=== PATIENT | female | born 1990 | race Caucasian/White ===

== ENCOUNTER 2021-06-03 07:02 | Outpatient (REF) | payer OTHER, SELFPAY ==
[2021-06-03 12:18] LABS: Alanine Aminotransferase 9 U/L (0-31); Albumin Level 4.3 g/dL (3.5-5.0); Alkaline Phosphatase 41 U/L (39-117); Anion Gap 10 (12-20); Aspartate Amino Transferase 12 U/L (5-31); Bilirubin Total 1.6 mg/dL (0.0-1.0); Blood Urea Nitrogen 10 mg/dL (9-16); Calcium 9.2 mg/dL (8.4-10.2); Carbon Dioxide 25 mmol/L (22-29); Chloride 108 mmol/L (96-108); Cholesterol 169 mg/dL; Estimated Glomerular Filt Rate > 60; Glucose Fasting 94 mg/dL (60-99); HDL Cholesterol 54 mg/dL; LDL Cholesterol Calculated 103 mg/dl; Potassium 4.2 mmol/L (3.3-5.1); Sodium 139 mmol/L (135-145); Total Protein 6.9 g/dL (6.5-8.0); Triglycerides 60 mg/dL
[2021-06-03 12:41] LABS: TSH reflex Free T4 1.52 uIU/mL (0.32-4.0)
== END 2021-06-03 07:03 | disposition home or self-care (01) ==
LOC: HO.WFDLDS 07:02
PROVIDERS: Visit Provider Family Medicine
DX: Z00.00 Encounter for general adult medical examination without abnormal findings (principal)
CPT/HCPCS: 36415; 80053; 80061; 84443

== ENCOUNTER 2022-06-05 09:43 | Outpatient (REF) | payer OTHER, SELFPAY ==
[2022-06-05 12:13] LABS: Alanine Aminotransferase 10 U/L (0-31); Albumin Level 4.7 g/dL (3.5-5.0); Alkaline Phosphatase 44 U/L (39-117); Anion Gap 15 (12-20); Aspartate Amino Transferase 16 U/L (5-31); Bilirubin Total 1.2 mg/dL (0.0-1.0); Blood Urea Nitrogen 14 mg/dL (9-16); Calcium 9.4 mg/dL (8.4-10.2); Carbon Dioxide 23 mmol/L (22-29); Chloride 106 mmol/L (96-108); Cholesterol 191 mg/dL; Estimated Glomerular Filt Rate > 60; Glucose Fasting 86 mg/dL (60-99); HDL Cholesterol 69 mg/dL; LDL Cholesterol Calculated 115 mg/dl; Potassium 4.7 mmol/L (3.3-5.1); Sodium 139 mmol/L (135-145); Total Protein 7.4 g/dL (6.5-8.0); Triglycerides 37 mg/dL
[2022-06-05 12:14] LABS: TSH reflex Free T4 0.98 uIU/mL (0.32-4.0)
== END 2022-06-05 09:44 | disposition home or self-care (01) ==
LOC: HO.WFDLDS 09:43
PROVIDERS: Visit Provider Family Medicine
DX: Z00.00 Encounter for general adult medical examination without abnormal findings (principal)
CPT/HCPCS: 36415; 80053; 80061; 84443

== ENCOUNTER 2023-06-24 07:09 | Outpatient (REF) | payer OTHER, SELFPAY ==
[2023-06-24 11:46] LABS: MANUAL DIFF FLAG NO
[2023-06-24 11:49] LABS: Basophils Percent Auto 0.9 % (0-2); Eosinophils Percent Auto 0.6 % (0-4); Hematocrit 41.1 % (37.0-47.0); Hemoglobin 14.3 g/dl (12.0-16.0); Imm Gran Abs Auto 0.01 X10*3/uL (0.00-0.03); Imm Gran Pct Auto 0.2 % (0.0-0.4); Lymphocytes Absolute Auto 1.3 X10*3/uL (1.2-4.9); Lymphocytes Percent Auto 27.9 % (20-40); Mean Corpuscular HGB Conc 34.8 g/dl (31.0-35.0); Mean Corpuscular Hemoglobin 32.1 pg (27.0-33.0); Mean Corpuscular Volume 92.4 fL (80.0-98.0); Mean Platelet Volume 10.5 fL (9.4-12.3); Monocytes Absolute Auto 0.4 X10*3/uL (0.1-1.2); Monocytes Percent Auto 8.9 % (2-11); Neutrophils Absolute Auto 2.9 x10*3/uL (2.0-8.3); Neutrophils Percent Auto 61.5 % (45-73); Platelet Count 267 X10*3/uL (160-400); Red Blood Count 4.45 X10*6/uL (4.20-5.50); Red Cell Distribution Width 11.7 % (11.0-16.0); White Blood Count 4.7 X10*3/uL (4.8-10.8)
[2023-06-24 11:52] LABS: Appearance Urine Cloudy; Color Urine Yellow; Glucose Urine UA Negative (Negative); Leukocyte Esterase Urine Negative (Negative); Nitrite Urine Negative (Negative); Specific Gravity - Urine 1.025 (1.005-1.025); UMIC TRIGGER UA YES; Urine Blood Moderate (2+) (Negative); Urine Ketones 40 mg/dL (Negative); Urine Protein Negative (Neg-Trace)
[2023-06-24 12:06] LABS: Alanine Aminotransferase 10 U/L (0-31); Albumin Level 4.7 g/dL (3.5-5.0); Alkaline Phosphatase 38 U/L (39-117); Anion Gap 15 (12-20); Aspartate Amino Transferase 15 U/L (5-31); Bilirubin Total 2.5 mg/dL (0.0-1.0); Blood Urea Nitrogen 11 mg/dL (9-16); Calcium 9.5 mg/dL (8.4-10.2); Carbon Dioxide 23 mmol/L (22-29); Chloride 105 mmol/L (96-108); Cholesterol 181 mg/dL (<200); Estimated Glomerular Filt Rate > 60; Glucose Fasting 74 mg/dL (60-99); HDL Cholesterol 55 mg/dL (>40); LDL Cholesterol Calculated 114 mg/dL (<100); Potassium 3.8 mmol/L (3.3-5.1); Sodium 139 mmol/L (135-145); Total Protein 7.6 g/dL (6.5-8.0); Triglycerides 60 mg/dL (<150)
[2023-06-24 12:12] LABS: Bacteria Urine None Seen (None Seen); Hyaline Casts Urine 0-2 /LPF (0-2); RBC Urine 0-2 /HPF (0-2); WBC Urine 0-5 /HPF (0-5)
[2023-06-24 12:24] LABS: TSH reflex Free T4 1.17 uIU/mL (0.32-4.0)
== END 2023-06-24 07:10 | disposition home or self-care (01) ==
LOC: HO.WFDLDS 07:09
PROVIDERS: Visit Provider Family Medicine
DX: Z00.00 Encounter for general adult medical examination without abnormal findings (principal)
CPT/HCPCS: 36415; 80053; 80061; 81001; 84443; 85025

== ENCOUNTER 2023-07-02 08:52 | Outpatient (AMB) | payer OTHER, SELFPAY ==
[2023-07-02 08:56] VITALS: BP 130/78; PULSE 78; RESP 13; TEMP 36.9; O2SAT 99; BMI 21.8
--- NOTE | 2023-07-02 08:56 | A.OFFPC_ITS ---
Vital Signs 07/02/23 08:56 Height 5 ft 2 in Weight 119 lb 6 oz BMI 21.8 BP 130/78 Blood Pressure Location Lt brachial Position Sitting Respiration 13 Pulse 78 Pulse Source Pulse Oximeter Temp 98.5 F Temp Source Temporal Artery Scan Pulse Oximetry (%) 99 Oxygen Delivery Method Room Air Intake Visit Reasons: CPE with f/u labs and health maintenance Vice President Diversity Required: No Accompanied by: Self / Same As Patient Allergies No Known Allergies Allergy (Verified 07/02/23 09:00) Tobacco use date assessed: 07/02/23 Dental Screening Dental Screen Date: 07/02/23 Did you have a dental visit in the last 12 months?: Yes Did you have a dental problem in the last 6 months where you did not have access to dental care?: No Was dental information given to patient?: Patient has dentist HPI CPE with f/u labs and health maintenance HPI Details 32 y/o female presents for a CPE with f/ u labs and health maintenance. Labs were drawn 06/24/23. Reviewed labs with pt. Triglycerides 60. TC 181. LDL 114. HDL 55. She is on sertraline 50mg and bupropion 75mg daily for her depression/anxiety. She has been trying to eat a healthy diet. [facility] Medical History Anxiety Surgical History History of hip surgery History of surgery Social History Housing: House Alcohol intake: current Alcohol intake frequency: a few times a month Patient Tobacco Use Status: Never used Tobacco e-Cigarette/Vaping Use: Never Used Second Hand Smoke Exposure: No service: No Current occupational status: employed Current occupation: [employer] Current occupational exposures/hazards: No Cognitive needs: No Hearing needs: No Vision needs: Yes (glasses/contacts) Questionnaire PHQ-9 Over the last 2 weeks, how often have you been bothered by any of the following problems? 1. Little interest or pleasure in doing things: several days 2. Feeling down, depressed, or hopeless: more than half the days 3. Trouble falling or staying asleep, or sleeping too much: more than half the days 4. Feeling tired or having little energy: more than half the days 5. Poor appetite or overeating: not at all 6. Feeling bad about yourself - or that you are a failure or have let yourself or your family down: several days 7. Trouble concentrating on things, such as reading the newspaper or watching television: several days 8. Moving or speaking so slowly that other people could have noticed. Or the opposite - being so fidgety or restless that you have been moving around a lot more than usual: several days 9. Thoughts that you would be better off or of hurting yourself in some way: several days Total score: 11 Depression Screening Interpretation: Positive Depression Screening Done: Yes 53456 - PHQ-9 Billing: Yes Source: Developed by Drs. Sathya Mueller, Anh Wheeler, Jonathan Ritter and colleagues, with an educational karina from [employer]. Thrive Questionnaire Date Thrive assessed: 12/12/21 AUDIT C Alcohol Use Questionnaire (AUDIT-C) 1. How often do you have a drink containing alcohol?: Monthly or less 2. How many drinks containing alcohol do you have on a typical day when you are drinking?: 1 or 2 3. How often do you have six or more drinks on one occasion?: Never Total Score: 1 ROXI-7 AMB Questionnaire ROXI-7 Date ROXI - 7 assessed: 07/02/23 Feeling nervous, anxious, or on edge: 1 = Several days Not being able to stop or control worryin = Several days Worrying too much about different things: 2 = More than half the days Trouble relaxin = Several days Being so restless that it is hard to sit still: 2 = More than half the days Becoming easily annoyed or irritable: 1 = Several days Feeling afraid as if something awful might happen: 1 = Several days Total ROXI-7 score (0-4 normal; 5-9 mild; 10-14 moderate; 15-21 severe): 9 Source: Developed by Drs. Sathya Mueller, Anh Wheeler, Jonathan Ritter and colleagues, with an educational karina from [employer]. ROXI-7 Assessment Billing ROXI-7 Assessment Tool: ROXI-7 Assessment 52691 Review of Systems Const Denies chills, Denies fatigue, Denies fever(s), Denies headache(s) and Denies weakness Eyes Denies change in vision ENT Denies dizziness, Denies headache(s), Denies hearing loss, Denies nasal elaine estion, Denies sinus pain, Denies sinus pressure and Denies sore throat Card Denies chest pain, Denies lightheadedness, Denies dyspnea and Denies other (palpitations) Resp Denies cough, Denies dyspnea and Denies wheezing GI Denies abdominal pain, Denies melena, Denies hematochezia, Denies change in bowel habits, Denies dyspepsia and Denies nausea Denies hematuria and Denies dysuria Musc Denies abnormal gait, Denies myalgias, Denies arthralgias, Denies numbness and Denies tingling Skin/Breast Denies rash, Denies unusual bruising and Denies wounds Neuro Denies abnormal gait, Denies dizziness, Denies headache(s), Denies memory loss, Denies numbness, Denies Sensory deficit (Neuro), Denies tingling and Denies weakness Psych Reports anxiety, Reports depression and Denies memory loss Endo Denies cold intolerance, Denies fatigue, Denies heat intolerance, Denies polydipsia and Denies polyuria Michael/Lymph Denies easy bleeding and Denies easy bruising Aller/Immun Denies wheezing Physical exam (Primary Care) Vital Signs: Last Vital Signs Temp 98.5 F 07/02/23 08:56 Pulse 78 07/02/23 08:56 Resp 13 07/02/23 08:56 BP 130/78 07/02/23 08:56 Pulse Ox 99 07/02/23 08:56 Oxygen Delivery Method Room Air 07/02/23 08:56 BMI result Body Mass Index 21.8 Tobacco/Smoking Status: Tobacco use Status Tobacco use date assessed 07/02/23 07/02/23 09:05 Patient Tobacco Use Status Never used Tobacco 07/02/23 09:05 e-Cigarette/Vaping Use Never Used 07/02/23 09:05 PHQ-9: PHQ-9 Score PHQ-9: Total score 11 07/02/23 09:44 Depression Screening Interpretation: Positive Thrive Assessment: Date of Thrive Assessment Date Thrive assessed 12/12/21 07/02/23 09:05 Const General: no acute distress, well developed, alert and awake Nutritional Appearance: well nourished Orientation/consciousness: [facility]: Yes normocephalic and Yes atraumatic Ears: hearing grossly normal bilaterally and TM's normal bilaterally General nose exam: Normal external nose present and Normal nares present Mouth: Normal oral and palatal mucosa present and moist mucous membranes Teeth and gingiva: dentition normal Throat: Yes posterior oropharynx normal Eyes General: appearance normal, both eyes and all related structures Pupils: Equal, round and reactive pupils present and Pupil accommodation reflex normal EOM: EOMs intact bilaterally Neck Neck: Yes normal visual inspection, Yes no lymphadenopathy and Yes trachea midline Thyroid: Thyroid normal Carotids: no bruits Lymphatic: no lymphadenopathy noted Chest Chest palpation & inspection: normal inspection of the chest Resp Effort & Inspection: normal respiratory effort Auscultation: clear to auscultation bilaterally Cardio Rate: regular rate Rhythm: regular rhythm Heart sounds: S1 normal heart sound present, S2 normal heart sound present, no gallops, no murmurs and no rubs Bruits: no abdominal aortic bruits and no carotid bruits GI Palpation (GI): No Abdominal aortic bruit present, Soft to palpation, nontender, No hepatosplenomegaly present and No Rebound tenderness present Auscultation: normal bowel sounds General: Yes no CVA tenderness Back/Spine/Pelvis Back: no CVA tenderness Cervical Spine: cervical ROM normal and No Cervical spine tenderness Thoracic/Lumbar Spine: thoraco-lumbar ROM normal, No pain with thoraco-lumbar ROM, No thoracic spinal tenderness and No lumbar spinal tenderness Skin Lesions: no lesions Rashes: no rashes Trauma: no lacerations or abrasions Wounds: no wounds Nails: normal Neuro General: patient oriented x3 Cranial nerves: Yes Equal, round and reactive pupils present Cognition (Neuro): normal cognition Gait exam (Neuro): Normal gait present Motor exam (neuro): 5/5 motor strength present throughout Sensory Exam: No Sensory deficit (Neuro) Deep tendon reflexes (DTR's): Right patellar reflex intensity grade: 2+ and Left patellar reflex intensity grade: 2+ Extrem General: Yes normal to inspection and No edema Psych Appearance: grossly normal Affect: normal affect Attitude: cooperative Thought process: Normal thought process present Assessment and Plan Assessment & Plan (1) Adult general medical exam: Code(s): Z00.00 - Encounter for general adult medical examination without abnormal findings Plan: 32-year-old?female?presents?for?complete?physical?exam Encouraged?healthy?diet?with?active?lifestyle?and?plenty?of?exercise (2) Depression with anxiety: Code(s): F41.8 - Other specified anxiety disorders Plan: Stable (3) Neurofibromatosis, 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
== END 2023-07-02 09:59 | disposition home or self-care (01) ==
PROVIDERS: Visit Provider Family Medicine
DX: Z00.00 Encounter for general adult medical examination without abnormal findings (principal); F41.8 Other specified anxiety disorders; Q85.01 Neurofibromatosis, type 1
CPT/HCPCS: 96127; 99395

== ENCOUNTER 2024-07-03 07:31 | Outpatient (REF) | payer OTHER, SELFPAY ==
[2024-07-03 11:58] LABS: Appearance Urine Clear; Color Urine Yellow; Glucose Urine UA Negative (Negative); Leukocyte Esterase Urine Negative (Negative); Nitrite Urine Negative (Negative); PH 6.5 (5.0-9.0); Specific Gravity - Urine <= 1.005 (1.005-1.025); UMIC TRIGGER UA YES; Urine Blood Moderate (2+) (Negative); Urine Ketones Negative (Negative); Urine Protein Negative (Neg-Trace)
[2024-07-03 12:25] LABS: Bacteria Urine None Seen (None Seen); Hyaline Casts Urine 0-2 /LPF (0-2); RBC Urine 0-2 /HPF (0-2); Squamous Epithelial Cell Urine 0-2 /HPF (0-2); WBC Urine 0-5 /HPF (0-5)
[2024-07-03 12:56] LABS: Alanine Aminotransferase 16 U/L (0-31); Albumin Level 4.3 g/dL (3.5-5.0); Alkaline Phosphatase 37 U/L (39-117); Anion Gap 12 (12-20); Aspartate Amino Transferase 29 U/L (5-31); Bilirubin Total 0.8 mg/dL (0.0-1.0); Blood Urea Nitrogen 13 mg/dL (9-16); Calcium 9.6 mg/dL (8.4-10.2); Carbon Dioxide 24 mmol/L (22-29); Chloride 106 mmol/L (96-108); Cholesterol 187 mg/dL (<200); Estimated Glomerular Filt Rate > 60; Glucose Fasting 84 mg/dL (60-99); HDL Cholesterol 67 mg/dL (>40); LDL Cholesterol Calculated 109 mg/dL (<100); Potassium 4.3 mmol/L (3.3-5.1); Sodium 138 mmol/L (135-145); Total Protein 7.1 g/dL (6.5-8.0); Triglycerides 57 mg/dL (<150)
[2024-07-03 12:57] LABS: Creatinine Urine 27.67 mg/dL; Microalbum/Creatinine Ratio Ur 21.6 ug/mg cr (<30)
[2024-07-03 13:00] LABS: TSH reflex Free T4 1.37 uIU/mL (0.32-4.0)
== END 2024-07-03 07:32 | disposition home or self-care (01) ==
LOC: HO.WFDLDS 07:31
PROVIDERS: Visit Provider Family Medicine
DX: Z00.00 Encounter for general adult medical examination without abnormal findings (principal); I10 Essential (primary) hypertension
CPT/HCPCS: 36415; 80053; 80061; 81001; 82043; 82570; 84443

== ENCOUNTER 2024-07-07 09:02 | Outpatient (AMB) | payer OTHER, SELFPAY ==
--- NOTE | 2024-07-07 09:06 | A.OFFPC_ITS ---
Vital Signs 07/07/24 09:21 Height 5 ft 2 in Weight 135 lb 6 oz BMI 24.8 BP 126/66 Blood Pressure Location Rt brachial Position Sitting Respiration 14 Pulse 90 Pulse Source Pulse Oximeter Temp 98.2 F Temp Source Oral Pulse Oximetry (%) 97 Oxygen Delivery Method Room Air Intake Visit Reasons: CPE with f/u labs and health maintenance Intake Note: cpe Allergies No Known Allergies Allergy (Verified 07/07/24 09:18) Medication List - Last Reconciled 07/07/24 by Koko Landon MD bupropion HCl 75 mg PO DAILY 90 days levonorgestrel (Liletta) intrauterine sertraline 50 mg PO DAILY Tobacco use date assessed: 07/07/24 Dental Screening Dental Screen Date: 07/07/24 Did you have a dental visit in the last 12 months?: Yes Did you have a dental problem in the last 6 months where you did not have access to dental care?: No Was dental information given to patient?: Patient has dentist HPI CPE with f/u labs and health maintenance HPI Details 33 y/o female presents for a CPE with f/ u labs and health maintenance. Labs drawn 07/03/24. Reviewed labs with pt. Triglycerides 57. TC 187. LDL 109. HDL 67. Notes she has been anxious lately, particularly about her weight and recent stressors. She notes medication regimen for mood has otherwise been working well. Denies SI/HI. She is seeking a therapist. She follows up with ObGyn for her health maintenance. HPI Comments History of Present Illness Details Documentation assistance for Koko Landon MD, was provided by Alen Tejada,? Manager [employer] on 07/07/2024 at 9:26 PM EST. I, Dr. Landon, have read, observed, and verified documentation. [facility] Medical History (Updated 07/07/24 @ 09:28 by Alen Tejada) Remove/insert IUD Anxiety Surgical History (Updated 07/07/24 @ 09:21 by EROS Gates) Status post surgical removal of both fallopian tubes History of hip surgery History of surgery Social History Housing: House Alcohol intake: current Alcohol intake frequency: a few times a month Patient Tobacco Use Status: Never used Tobacco e-Cigarette/Vaping Use: Never Used Second Hand Smoke Exposure: No service: No Current occupational status: employed Current occupation: [employer] Current occupational exposures/hazards: No Cognitive needs: No Hearing needs: No Vision needs: Yes (glasses/contacts) Questionnaire PHQ-9 Over the last 2 weeks, how often have you been bothered by any of the following problems? 1. Little interest or pleasure in doing things: not at all 2. Feeling down, depressed, or hopeless: several days 3. Trouble falling or staying asleep, or sleeping too much: several days 4. Feeling tired or having little energy: several days 5. Poor appetite or overeating: not at all 6. Feeling bad about yourself - or that you are a failure or have let yourself or your family down: not at all 7. Trouble concentrating on things, such as reading the newspaper or watching television: not at all 8. Moving or speaking so slowly that other people could have noticed. Or the opposite - being so fidgety or restless that you have been moving around a lot more than usual: not at all 9. Thoughts that you would be better off or of hurting yourself in some way: not at all Total score: 3 Depression Screening Interpretation: Negative Depression Screening Done: Yes 87098 - PHQ-9 Billing: Yes Source: Developed by Drs. Sathya Mueller, Anh Wheeler, Jonathan Ritter and colleagues, with an educational karina from [employer]. Thrive Questionnaire Date Thrive assessed: 07/07/24 I am a: Patient What is your living situation today?: I have a steady place to live Within the past 12 months, did the food you bought not last and you didn't have the money to get more?: Never true Within the past 12 months, did you worry whether your food would run out before you got money to buy more?: Never true Do you have trouble paying for medicines?: No Do you have trouble getting transportation to medical appointments?: No Do you have trouble paying your heating and electricity bill?: No Do you have trouble taking care of your child, family member or friend?: No Do you have trouble with day-to-day activities such as bathing, preparing meals, shopping, managing finances, etc.?: No Are you currently unemployed and looking for a job?: No Are you interested in more education?: No Please select the resources that you would like help with: None Currently or been in a relationship where the following occur: No concerns reported THRIVE Score: 0 AUDIT C Alcohol Use Questionnaire (AUDIT-C) 1. How often do you have a drink containing alcohol?: Never 3. How often do you have six or more drinks on one occasion?: Never Total Score: 0 ROXI-7 AMB Questionnaire ROXI-7 Date ROXI - 7 assessed: 07/07/24 Feeling nervous, anxious, or on edge: 2 = More than half the days Not being able to stop or control worryin = Several days Worrying too much about different things: 1 = Several days Trouble relaxin = Several days Being so restless that it is hard to sit still: 0 = Not at all Becoming easily annoyed or irritable: 1 = Several days Feeling afraid as if something awful might happen: 1 = Several days Total ROXI-7 score (0-4 normal; 5-9 mild; 10-14 moderate; 15-21 severe): 7 Source: Developed by Drs. Sathya Mueller, Anh Wheeler, Jonathan Ritter and colleagues, with an educational karina from [employer]. ROXI-7 Assessment Billing ROXI-7 Assessment Tool: ROXI-7 Assessment 76022 Review of Systems Const Denies chills, Denies fatigue, Denies fever(s), Denies headache(s) and Denies weakness Eyes Denies change in vision ENT Denies dizziness, Denies headache(s), Denies hearing loss, Denies nasal congestion, Denies sinus pain, Denies sinus pressure and Denies sore throat Card Denies chest pain, Denies lightheadedness, Denies dyspnea and Denies other (palpitations) Resp Denies cough, Denies dyspnea and Denies wheezing GI Denies abdominal pain, Denies melena, Denies hematochezia, Denies change in bowel habits, Denies dyspepsia and Denies nausea Denies hematuria and Denies dysuria Musc Denies abnormal gait, Denies myalgias, Denies arthralgias, Denies numbness and Denies tingling Skin/Breast Denies rash, Denies unusual bruising and Denies wounds Neuro Denies abnormal gait, Denies dizziness, Denies headache(s), Denies memory loss, Denies numbness, Denies Sensory deficit (Neuro), Denies tingling and Denies weakness Psych Reports anxiety and Denies memory loss Endo Denies cold intolerance, Denies fatigue, Denies heat intolerance, Denies polydipsia and Denies polyuria Michael/Lymph Denies easy bleeding and Denies easy bruising Aller/Immun Denies wheezing Physical exam (Primary Care) Vital Signs: Last Vital Signs Temp 98.2 F 07/07/24 09:21 Pulse 90 07/07/24 09:21 Resp 14 07/07/24 09:21 BP 126/66 07/07/24 09:21 Pulse Ox 97 07/07/24 09:21 Oxygen Delivery Method Room Air 07/07/24 09:21 BMI result Body Mass Index 24.8 Tobacco/Smoking Status: Tobacco use Status Tobacco use date assessed 07/07/24 07/07/24 09:23 Patient Tobacco Use Status Never used Tobacco 07/07/24 09:08 e-Cigarette/Vaping Use Never Used 07/07/24 09:08 PHQ-9: PHQ-9 Score PHQ-9: Total score 3 07/07/24 09:27 Depression Screening Interpretation: Negative Thrive Assessment: Date of Thrive Assessment Date Thrive assessed 07/07/24 07/07/24 09:23 Currently or been in a relationship where the following occur: No concerns reported Const General: no acute distress, well developed, alert and awake Nutritional Appearance: well nourished Orientation/consciousness: patient oriented x3 HENMT Head: Yes normocephalic and Yes atraumatic Ears: hearing grossly normal bilaterally and TM's normal bilaterally General nose exam: Normal external nose present and Normal nares present Mouth: Normal oral and palatal mucosa present and moist mucous membranes Teeth and gingiva: dentition normal Throat: Yes posterior oropharynx normal Eyes General: appearance normal, both eyes and all related structures Pupils: Equal, round and reactive pupils present and Pupil accommodation reflex normal EOM: EOMs intact bilaterally Neck Neck: Yes normal visual inspection, Yes no lymphadenopathy and Yes trachea mid line Thyroid: Thyroid normal Carotids: no bruits Lymphatic: no lymphadenopathy noted Chest Chest palpation & inspection: normal inspection of the chest Resp Effort & Inspection: normal respiratory effort Auscultation: clear to auscultation bilaterally Cardio Rate: regular rate Rhythm: regular rhythm Heart sounds: S1 normal heart sound present, S2 normal heart sound present, no gallops, no murmurs and no rubs Bruits: no abdominal aortic bruits and no carotid bruits GI Palpation (GI): No Abdominal aortic bruit present, Soft to palpation, nontender, No hepatosplenomegaly present and No Rebound tenderness present Auscultation: normal bowel sounds General: Yes no CVA tenderness Back/Spine/Pelvis Back: no CVA tenderness Cervical Spine: cervical ROM normal and No Cervical spine tenderness Thoracic/Lumbar Spine: thoraco-lumbar ROM normal, No pain with thoraco-lumbar ROM, No thoracic spinal tenderness and No lumbar spinal tenderness Skin Lesions: no lesions Rashes: no rashes Trauma: no lacerations or abrasions Wounds: no wounds Nails: normal Neuro General: patient oriented x3 Cranial nerves: Yes Equal, round and reactive pupils present Cognition (Neuro): normal cognition Gait exam (Neuro): Normal gait present Motor exam (neuro): 5/5 motor strength present throughout Sensory Exam: No Sensory deficit (Neuro) Deep tendon reflexes (DTR's): Right patellar reflex intensity grade: 2+ and Left patellar reflex intensity grade: 2+ Extrem General: Yes normal to inspection and No edema Psych Appearance: grossly normal Affect: normal affect Attitude: cooperative Thought process: Normal thought process present Coding Level of Care Code Est Pt Level 3 (19772) Est Pt Prev Care 18-39y(16582) Diagnoses Adult general medical exam Z00.00 Elevated LDL cholesterol level E78.00 Screening for cervical cancer Z12.4 Anxiety F41.9 Neurofibromatosis, 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 Breast cancer screening by mammogram Z12.31 Additional Codes ROXI-7 Assessment Billing - ROXI-7 Assessment Tool: ROXI-7 Assessment 72492 ([id number]) PHQ-9 - 79605 - PHQ-9 Billing: Yes ([id number]) Assessment & Plan Assessment & Plan (1) Adult general medical exam: Code(s): Z00.00 - Encounter for general adult medical examination without abnormal findings Category: Medical Plan: 33-year-old?female?presents?for?complete?physical?exam Encouraged?healthy?diet?with?active?lifestyle?and?plenty?of?exercise (2) Elevated LDL cholesterol level: Code(s): E78.00 - Pure hypercholesterolemia, unspecified Category: Medical Plan: LDL?cholesterol?is?mildly?elevated?but?HDL?ratios?are?good No?indication?for?medicine?at?this?time Work?at?a?diet?lower?in?saturated?fats?and?cholesterol (3) Screening for cervical cancer: Code(s): Z12.4 - Encounter for screening for malignant neoplasm of cervix Category: Medical Plan: Followed?by Veronica Damon in?[facility]?[place] Pap?smear?last?year.??Up-to-date (4) Anxiety: Code(s): F41.9 - Anxiety disorder, unspecified Category: Medical Plan: Patient?has?increased?anxiety?due?to?recent?events Advised?she?continue?her?medications?and?she?is?already?seeking?a?therapist. She?can?let?me?know?if?she?needs?help?getting?a?therapist. 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 - Neurofibromatosis, type 1 Category: Medical Plan: Stable She?has?a?specialist?in?[place]?and?she?can?call?them?for?follow-up?as?needed (6) Breast cancer screening by mammogram: Code(s): Z12.31 - Encounter for screening mammogram for malignant neoplasm of breast Category: Medical Plan: Given?patient's?diagnosis?of?neurofibromatosis?and?also?fibrous?breast?tissue,?s he?has?started?mammograms These?are?managed?by?her?obstetrician and gynaecologist Continue?screening?as?recommended.??Follow-up?with?obstetrician and gynaecologist Plan [employer] at [facility] Veronica Damon. Recent Salpingectomy Orders: Orders Comprehensive [place]. Panel Fast Today Z00.00 - Encounter for general adult medical examination without abnormal findings TSH reflex Free T4 Today Z00.00 - Encounter for general adult medical examination without abnormal findings Complete Blood Count Auto Diff Today Z00.00 - Encounter for general adult medical examination without abnormal findings Lipid Panel Today Z00.00 - Encounter for general adult medical examination without abnormal findings Microalbumin, Random (w Creat) Today I10 - Essential (primary) hypertension UA and rflx microscopic Today Z00.00 - Encounter for general adult medical examination without abnormal findings
[2024-07-07 09:21] VITALS: BP 126/66; PULSE 90; RESP 14; TEMP 36.8; O2SAT 97; BMI 24.8
== END 2024-07-07 09:43 | disposition home or self-care (01) ==
PROVIDERS: PCP Family Medicine; Visit Provider Family Medicine
DX: Z00.00 Encounter for general adult medical examination without abnormal findings (principal); E78.00 Pure hypercholesterolemia, unspecified; F41.9 Anxiety disorder, unspecified; Q85.01 Neurofibromatosis, type 1; Z12.31 Encounter for screening mammogram for malignant neoplasm of breast

== ENCOUNTER → 2024-07-07 09:02 | Outpatient (BNVA) | payer OTHER, SELFPAY | PROVIDERS: PCP Family Medicine; Visit Provider Family Medicine | DX: Z00.00 Encounter for general adult medical examination without abnormal findings (principal); E78.00 Pure hypercholesterolemia, unspecified; F41.9 Anxiety disorder, unspecified; Q85.01 Neurofibromatosis, type 1 | CPT/HCPCS: 96127 ==

== ENCOUNTER 2025-07-06 07:32 | Outpatient (REF) | payer OTHER, SELFPAY ==
--- OUTSIDE RECORDS SUMMARY | 1998-07-19 | XMS_ITS | Encounter Summary ---
Author Organization [facility] Address [address] [place] [address] Phone Care Team Providers Care C Web Developer Name Role Phone Unavailable Primary Care Provider Unavailabl e Reason for Visit * MRI/CAT Scan - Closed Specialty Diagnoses / Procedures Referred By Contac t Referred To Contact Procedures MRI Brain Outside (No Interpretation) David Joaquin MD mailto:[email or web address] Referral ID Status Reason Start Date Expiration Date Visits Re quested Visits Authorized [id number] Closed 06/30/2018 06/30/2019 1 1 Encounter Details Date Type Department Care Team (Late st Contact Info) Description 07/19/1998 Hospital Encounter [facility] General Imaging [address] [place] [address] David Joaquin MD [email or web address] Social History Tobacco Use Types Packs/Day Years Used Date Smoking Tobacco: Never Smokeless Tobacco: Never Alcohol Use Standard Drinks/Week Comments Yes 0 (1 standard drink = 0.6 oz pur e alcohol) Occasional w/ dinner Education Answer Date Recorded Are you interested in more education? Not on giovany e 01/11/2023 Are you concerned about learning? Not on file 01/11/2023 No 01/11/2023 No 01/11/2023 Digital Access Answer Date Recorded No 01/24/2023 No 01/24/2023 No 01/24/2023 Reliable internet access at home? Not on file 01/24/2023 Device with a working camera? Not on file Comments No Sex and Gender Information Value Date Recorded Sex Assigned at Female 06/14/2020 11:43 AM EDT Legal Sex Female 7:01 PM EST Gender Identity Female 06/14/2020 11:43 AM EDT Sexual Orientation Straight 06/14/2020 11 :43 AM EDT documented as of this encounter Plan of Treatment Not on file documented as of this encounter Procedures Procedure Name Priority Date/Time Associated Diagnosis Comments MRI BRAIN OUTSIDE (NO INTERPRETATION) Routine 07/19/1998 12:00 AM EST documented in this encounter Results * MRI Brain Outside (No Interpretation) (07/19/1998 12:00 AM EST) Narrative [facility] IMG INTERFACES - 06/30/2018 10:51 AM EDT This study is for PACS storage only and not for interpretation. us David Joaquin MD IMG OUTSIDE IMAGING W/OU T INTERPRETATION Final Result [facility] IMG INTERFACES documented in this encounter Visit Diagnoses Not on filedocumented in this encounter Additional Source Comments The information contained in this document represents components of the legal health record. It is not the complete legal health record.[facility]
--- OUTSIDE RECORDS SUMMARY | 2000-08-24 | XMS_ITS | Encounter Summary ---
Author Organization [facility] Address [address] [place] [address] Phone Care Team Providers Care Heel Seat Fitter Name Role Phone Unavailable Primary Care Provider Unavailabl e Reason for Visit * MRI/CAT Scan - Closed Specialty Diagnoses / Procedures Referred By Contac t Referred To Contact Procedures MRI Abdomen Outside (No Interpretation) David Joaquin MD mailto:[email or web address] Referral ID Status Reason Start Date Expiration Date Visits Re quested Visits Authorized [id number] Closed 06/30/2018 06/30/2019 1 1 Encounter Details Date Type Department Care Team (Late st Contact Info) Description 08/24/2000 Hospital Encounter [facility] General Imaging [address] [place] [address] David Joaquin MD [email or web address] Social History Tobacco Use Types Packs/Day Years [...] (No Interpretation) (08/24/2000 12:00 AM EST) Narrative [facility]G INTERFACES - 06/30/2018 10:52 AM EDT This study is for PACS storage only and not for interpretation. us David Joaquin MD IMG OUTSIDE IMAGING W/OU T INTERPRETATION Final Result [facility]G INTERFACES documented in this encounter Visit Diagnoses Not on filedocumented in this encounter Additional Source Comments The information contained in this document represents components of the legal health record. It is not the complete legal health record.[facility]
--- OUTSIDE RECORDS SUMMARY | 2002-04-13 23:00 | XMS_ITS | Encounter Summary ---
Author Organization [facility] Address [address] [place] [address] Phone Care Team Providers Care Service Delivery Analyst Name Role Phone Unavailable Primary Care Provider Unavailabl e Reason for Visit * MRI/CAT Scan - Closed Specialty Diagnoses / Procedures Referred By Contac t Referred To Contact Procedures MRI Abdomen Outside (No Interpretation) David Joaquin MD mailto:[email or web address] Referral ID Status Reason Start Date Expiration Date Visits Re quested Visits Authorized [id number] Closed 06/30/2018 06/30/2019 1 1 Encounter Details Date Type Department Care Team (Late st Contact Info) Description 04/14/2002 Hospital Encounter [facility] General Imaging [address] [place] [address] David Joaquin MD [email or web address] Social History Tobacco Use Types Packs/Day [...] Comments MRI ABDOMEN OUTSIDE (NO INTERPRETATION) Routine 04/14/2002 12:00 AM EDT documented in this encounter Results * MRI Abdomen Outside (No Interpretation) (04/14/2002 12:00 AM EDT) Narrative [facility] IMG INTERFACES - 06/30/2018 10:52 AM EDT This study is for PACS storage only and not for interpretation. us David Joaquin MD IMG OUTSIDE IMAGING W/OU T INTERPRETATION Final Result [facility] IMG INTERFACES documented in this encounter Visit Diagnoses Not on filedocumented in this encounter Additional Source Comments The information contained in this document represents components of the legal health record. It is not the complete legal health record.[facility]
--- OUTSIDE RECORDS SUMMARY | 2004-12-26 23:00 | XMS_ITS | Encounter Summary ---
Author Organization [facility] Address [address] [place] [address] Phone Care Team Providers Care Dry Kiln Feeder Name Role Phone Unavailable Primary Care Provider Unavailabl e Reason for Visit * MRI/CAT Scan - Closed Specialty Diagnoses / Procedures Referred By Contac t Referred To Contact Procedures MRI Abdomen Outside (No Interpretation) David Joaquin MD mailto:[email or web address] Referral ID Status Reason Start Date Expiration Date Visits Re quested Visits Authorized [id number] Closed 06/30/2018 06/30/2019 1 1 Encounter Details Date Type Department Care Team (Late st Contact Info) Description 12/27/2004 Hospital Encounter [facility] General Imaging [address] [place] [address] David Joaquin MD [email or web address] Social History Tobacco Use Types Packs/Day [...] (No Interpretation) (12/27/2004 12:00 AM EDT) Narrative [facility] IMG INTERFACES - 06/30/2018 10:51 AM EDT This study is for PACS storage only and not for interpretation. us David Joaquin MD IMG OUTSIDE IMAGING W/OU T INTERPRETATION Final Result [facility] IMG INTERFACES documented in this encounter Visit Diagnoses Not on filedocumented in this encounter Additional Source Comments The information contained in this document represents components of the legal health record. It is not the complete legal health record.[facility]
--- OUTSIDE RECORDS SUMMARY | 2007-01-01 23:00 | XMS_ITS | Encounter Summary ---
Author Organization [facility] Address [address] [place] [phone] Phone Care Team Providers Care Hand Winder Name Role Phone Unavailable Primary Care Provider Unavailabl e Reason for Visit * MRI/CAT Scan - Closed Specialty Diagnoses / Procedures Referred By Contac t Referred To Contact Procedures MRI Lower Extremity Outside (No Interpretation) David Joaquin MD mailto:[email or web address] Referral ID Status Reason Start Date Expiration Date Visits Re quested Visits Authorized [id number] Closed 06/30/2018 06/30/2019 1 1 Encounter Details Date Type Department Care Team (Late st Contact Info) Description 01/02/2007 Hospital Encounter [facility] General Imaging [address] [place] [address] David Joaquin MD [email or web address] Social History Tobacco Use Types Packs/Day [...] (No Interpretation) (01/02/2007 12:00 AM EDT) Narrative [facility]G INTERFACES - 06/30/2018 10:50 AM EDT This study is for PACS storage only and not for interpretation. us David Joaquin MD IMG OUTSIDE IMAGING W/OU T INTERPRETATION Final Result [facility] INTER[facility]ACES documented in this encounter Visit Diagnoses Not on filedocumented in this encounter Additional Source Comments The information contained in this document represents components of the legal health record. It is not the complete legal health record.[facility]
--- OUTSIDE RECORDS SUMMARY | 2007-01-01 23:15 | XMS_ITS | Encounter Summary ---
Author Organization [facility] Address [address] [place] [address] Phone Care Team Providers Care Staking Engineer Name Role Phone Unavailable Primary Care Provider Unavailabl e Reason for Visit * MRI/CAT Scan - Closed Specialty Diagnoses / Procedures Referred By Contac t Referred To Contact Procedures MRI Abdomen Outside (No Interpretation) David Joaquin MD mailto:[email or web address] Referral ID Status Reason Start Date Expiration Date Visits Re quested Visits Authorized [id number] Closed 06/30/2018 06/30/2019 1 1 Encounter Details Date Type Department Care Team (Late st Contact Info) Description 01/02/2007 12:15 AM EDT Hospital Encounter [facility] General Imaging [address] [place] [address] David Joaquin MD JTJORDAN@[email or web address] Social History Tobacco Use Types Packs/Day Years [...] (No Interpretation) (01/02/2007 12:15 AM EDT) Narrative [facility] IMG INTERFACES - 06/30/2018 10:50 AM EDT This study is for PACS storage only and not for interpretation. us David Joaquin MD IMG OUTSIDE IMAGING W/OU T INTERPRETATION Final Result [facility]G INTERFACES documented in this encounter Visit Diagnoses Not on filedocumented in this encounter Additional Source Comments The information contained in this document represents components of the legal health record. It is not the complete legal health record.[facility]
--- OUTSIDE RECORDS SUMMARY | 2007-01-31 23:00 | XMS_ITS | Encounter Summary ---
Author Organization [facility] Address [address] [place] [address] Phone Care Team Providers Care Marriage Counselor Minister Name Role Phone Unavailable Primary Care Provider Unavailabl e Reason for Visit * MRI/CAT Scan - Closed Specialty Diagnoses / Procedures Referred By Contac t Referred To Contact Procedures MRI Spine (Neuro) Outside (No Interpretation) David Joaquin MD mailto:[email or web address] Referral ID Status Reason Start Date Expiration Date Visits Re quested Visits Authorized [id number] Closed 06/30/2018 06/30/2019 1 1 Encounter Details Date Type Department Care Team (Late st Contact Info) Description 02/01/2007 Hospital Encounter [facility] [address] [place] [address] David Joaquin MD JTJORDAN@[email or web address] Social History Tobacco Use Types Packs/Day [...] Name Priority Date/Time Associated Diagnosis Comments MRI SPINE NEUROLOGIC FOCUS OUTSIDE (NO INTERPRETATION) Routine 02/01/2007 12:00 AM EDT documented in this encounter Results * MRI Spine (Neuro) Outside (No Interpretation) (02/01/2007 12:00 AM EDT) Narrative [facility] IMG INTERFACES - 06/30/2018 10:49 AM EDT This study is for PACS storage only and not for interpretation. us David Joaquin MD IMG OUTSIDE IMAGING W/OU T INTERPRETATION Final Result [facility] IMG INTERFACES documented in this encounter Visit Diagnoses Not on filedocumented in this encounter Additional Source Comments The information contained in this document represents components of the legal health record. It is not the complete legal health record.[facility]
--- OUTSIDE RECORDS SUMMARY | 2007-08-22 | XMS_ITS | Encounter Summary ---
Author Organization [facility] Address [address] [facility] [address] [place] [address] Phone Care Team Providers Care Master Ocean Yacht Name Role Phone Unavailable Primary Care Provider Unavailabl e Reason for Visit * MRI/CAT Scan - Closed Specialty Diagnoses / Procedures Referred By Contac t Referred To Contact Procedures MRI Spine (Neuro) Outside (No Interpretation) David Joaquin MD mailto:[email or web address] Referral ID Status Reason Start Date Expiration Date Visits Re quested Visits Authorized [id number] Closed 06/30/2018 06/30/2019 1 1 Encounter Details Date Type Department Care Team (Late st Contact Info) Description 08/22/2007 Hospital Encounter [facility] [address] [place] [address] David Joaquin MD [email or web address] Social History Tobacco Use Types [...] SPINE NEUROLOGIC FOCUS OUTSIDE (NO INTERPRETATION) Routine 08/22/2007 12:00 AM EST documented in this encounter Results * MRI Spine (Neuro) Outside (No Interpretation) (08/22/2007 12:00 AM EST) Narrative [facility] IMG INTERFACES - 06/30/2018 10:49 AM EDT This study is for PACS storage only and not for interpretation. us David Joaquin MD IMG OUTSIDE IMAGING W/OU T INTERPRETATION Final Result [facility] IMG INTERFACES documented in this encounter Visit Diagnoses Not on filedocumented in this encounter Additional Source Comments The information contained in this document represents components of the legal health record. It is not the complete legal health record.[facility]
--- OUTSIDE RECORDS SUMMARY | 2011-03-08 23:00 | XMS_ITS | Encounter Summary ---
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 Name Role Phone Unavailable Primary Care Provider Unavailabl e Reason for Visit * MRI/CAT Scan - Closed Specialty Diagnoses / Procedures Referred By Contac t Referred To Contact Procedures MRI Spine (Neuro) Outside (No Interpretation) David Joaquin MD mailto:[email or web address] Referral ID Status Reason Start Date Expiration Date Visits Re quested Visits Authorized [id number] Closed 06/30/2018 06/30/2019 1 1 Encounter Details Date Type Department Care Team (Late st Contact Info) Description 03/09/2011 Hospital Encounter [facility] [address] [place] [address] David Joaquin MD [email or web address] [email or web address] Social History Tobacco Use Types Packs/Day Years [...] SPINE NEUROLOGIC FOCUS OUTSIDE (NO INTERPRETATION) Routine 03/09/2011 12:00 AM EDT documented in this encounter Results * MRI Spine (Neuro) Outside (No Interpretation) (03/09/2011 12:00 AM EDT) Narrative [facility] [place] - 06/30/2018 10:48 AM EDT This study is for PACS storage only and not for interpretation. us David Joaquin MD IMG OUTSIDE IMAGING W/OU T INTERPRETATION Final Result [facility] [place] documented in this encounter Visit Diagnoses Not on filedocumented in this encounter Additional Source Comments The information contained in this document represents components of the legal health record. It is not the complete legal health record.[facility]
--- OUTSIDE RECORDS SUMMARY | 2025-07-06 07:35 | XMS_ITS | Encounter Summary ---
Author Organization [facility] Address [address] [place] [address] Phone Care Team Providers Care Manager Beauty Name Role Phone Amna Davis NP Primary Care Provider [phone] Koko Landon MD Primary Care Provider Koko Landon MD Primary Care Provider Koko Landon MD Unavailable [phone] David Joaquin MD Unavailable JUSTIN [email or web address] Encounter Details Date Type Department Care Team (Late st Contact Info) Description 06/30/2018 Procedure Pass [facility] [address] [place] [address] Social History Tobacco Use Types Packs/Day Years Used Date Smoking Tobacco: Never Smokeless Tobacco: Never Alcohol Use Standard Drinks/Week Comments Yes 0 (1 standard drink = 0.6 oz pur e alcohol) Occasional w/ dinner Comments No Sex and Gender Information Value Date Recorded Sex Assigned at Female 06/14/2020 11:43 AM EDT Legal Sex Female 7:01 PM EST Gender Identity Female 06/14/2020 11:43 AM EDT Sexual Orientation Straight 06/14/2020 11 :43 AM EDT documented as of this encounter Plan of Treatment Not on file documented as of this encounter Visit Diagnoses Not on filedocumented in this encounter Care Teams Manager Beauty Relationship Specialty Start Date End Date Amna Davis NP [address] [place] [address] [place] [address] PCP - General Family Medicine 03/25/18 06/19/19 Koko Landon MD [address] [place] [address] [place] [address] PCP - General 06/20/19 08/17/21 Koko Landon MD [address] [place] [address] [place] [address] PCP - General 08/18/21 Koko Landon MD [address] [place] [address] [place] [address] 08/18/21 David Joaquin MD [email or web address] Primary Oncologist Neurology 11/08/18 documented as of this encounter Additional Source Comments The information contained in this document represents components of the legal health record. It is not the complete legal health record.[facility]
--- OUTSIDE RECORDS SUMMARY | 2025-07-06 07:35 | XMS_ITS | Encounter Summary ---
Author Organization [facility] Address [address] [place] [address] Phone Care Team Providers Care Hot Mill Operator Name Role Phone Amna Davis NP Primary Care Provider [phone] Koko Landon MD Primary Care Provider Koko Landon MD Primary Care Provider Koko Landon MD Unavailable [phone] David Joaquin MD Unavailable JUSTIN [email or web address] Encounter Details Date Type Department Care Team (Late st Contact Info) Description 06/30/[address] [facility] [address] [place] [address] Social History Tobacco Use Types Packs/Day Years [...] on filedocumented in this encounter Care Teams Hot Mill Operator Relationship Specialty Start Date End Date Amna Davis NP [address] [place] [address] [place] [address] PCP - General Family Medicine 03/25/18 06/19/19 Koko Landon MD [address] [place] [address] [place] [address] PCP - General 06/20/19 08/17/21 Koko Landon MD [address] [place] [address] [place] [address] PCP - General 08/18/21 Koko Landon MD [address] [place] [address] [place] [address] 08/18/21 David Joaquin MD [email or web address] Primary Oncologist Neurology 11/08/18 documented as of this encounter Additional Source Comments The information contained in this document represents components of the legal health record. It is not the complete legal health record.[facility]
--- OUTSIDE RECORDS SUMMARY | 2025-07-06 07:35 | XMS_ITS | Encounter Summary ---
Author Organization [facility] Address [address] [place] [address] Phone Care Team Providers Care Package Dye Stand Loader Name Role Phone Amna Davis NP Primary Care Provider [phone] Koko Landon MD Primary Care Provider Koko Landon MD Primary Care Provider Koko Landon MD Unavailable David Joaquin MD Unavailable JUSTIN [email or web address] Encounter Details Date Type Department Care Team (Late st Contact Info) Description 06/30/2018 Procedure Pass [facility] [address] [place] [address] Social History Tobacco Use Types Packs/Day Years [...] on filedocumented in this encounter Care Teams Package Dye Stand Loader Relationship Specialty Start Date End Date Amna Davis NP [address] [place] [address] [place] [address] PCP - General Family Medicine 03/25/18 06/19/19 Koko Landon MD [address] [place] [address] [place] [address] PCP - General 06/20/19 08/17/21 Koko Landon MD [address] [place] [address] [place] [address] PCP - General 08/18/21 Koko Landon MD [address] [place] [address] [place] [address] 08/18/21 David Joaquin MD [email or web address] Primary Oncologist Neurology 11/08/18 documented as of this encounter Additional Source Comments The information contained in this document represents components of the legal health record. It is not the complete legal health record.[facility]
--- OUTSIDE RECORDS SUMMARY | 2025-07-06 07:35 | XMS_ITS | Encounter Summary ---
Author Organization [facility] Address [address] [place] [address] Phone Care Team Providers Care Dry Box Tender Name Role Phone Francesca Solis MD Primary Care Provider [phone] Encounter Details Date Type Department Care Team (Late st Contact Info) Description 03/16/2011 Documentation [facility] [address] [place] [address] Family Medicine, Physician [address] [id number] Social History Tobacco Use Types Packs/Day Years Used Date Smoking Tobacco: Never Assessed Comments Unknown Sex and Gender Information Value Date Recorded Sex Assigned at Not on file Legal Sex Female 4:39 PM EDT Gender Identity Not on file Sexual Orientation Not on file documented as of this encounter Plan of Treatment Not on file documented as of this encounter Visit Diagnoses Not on filedocumented in this encounter Care Teams Dry Box Tender Relationship Specialty Start Date End Date Francesca Solis MD [address] [place] [address] BELEN Richardson PCP - General 04/09/17 12/06/22 documented as of this encounter
--- OUTSIDE RECORDS SUMMARY | 2025-07-06 07:35 | XMS_ITS | Encounter Summary ---
Author Organization [facility] Address [address] [place] [address] Phone Care Team Providers Care Shake Out Worker Name Role Phone Amna Davis NP Primary Care Provider [phone] Koko Landon MD Primary Care Provider Koko Landon MD Primary Care Provider Koko Landon MD Unavailable [phone] David Joaquin MD Unavailable JUSTIN [email or web address] Encounter Details Date Type Department Care Team (Late st Contact Info) Description 06/30/2018 Procedure Pass [facility] [address] [place] [address] Social History Tobacco Use Types Packs/Day Years [...] on filedocumented in this encounter Care Teams Shake Out Worker Relationship Specialty Start Date End Date Amna Davis NP [address] [place] [address] [place] [address] PCP - General Family Medicine 03/25/18 06/19/19 Koko Landon MD [address] [place] [address] [place] [address] PCP - General 06/20/19 08/17/21 Koko Landon MD [address] [place] [address] [place] [address] PCP - General 08/18/21 Koko Landon MD [address] [place] [address] [place] [address] 08/18/21 David Joaquin MD [email or web address] Primary Oncologist Neurology 11/08/18 documented as of this encounter Additional Source Comments The information contained in this document represents components of the legal health record. It is not the complete legal health record.[facility]
--- OUTSIDE RECORDS SUMMARY | 2025-07-06 07:35 | XMS_ITS | Encounter Summary ---
Author Organization [facility] Address [address] [place] [address] Phone Care Team Providers Care Community Manager Name Role Phone Amna Davis NP Primary Care Provider [phone] Koko Landon MD Primary Care Provider Koko Landon MD Primary Care Provider Koko Landon MD Unavailable David Joaquin MD Unavailable JUSTIN [email or web address] Encounter Details Date Type Department Care Team (Late st Contact Info) Description 06/30/2018 Procedure Pass [facility] [address] [place] [address] Social History Tobacco Use Types Packs/Day Years [...] on filedocumented in this encounter Care Teams Community Manager Relationship Specialty Start Date End Date Amna Davsi NP [address] [place] [address] [place] [address] PCP - General Family Medicine 03/25/18 06/19/19 Koko Landon MD [address] [place] [address] [place] [address] PCP - General 06/20/19 08/17/21 Koko Landon MD [address] [place] [address] [place] [address] PCP - General 08/18/21 Koko Landon MD [address] [place] [address] [place] [address] 08/18/21 David Joaquin MD [email or web address] Primary Oncologist Neurology 11/08/18 documented as of this encounter Additional Source Comments The information contained in this document represents components of the legal health record. It is not the complete legal health record.[facility]
--- OUTSIDE RECORDS SUMMARY | 2025-07-06 07:35 | XMS_ITS | Encounter Summary ---
Author Organization [facility] Address [address] [facility] [address] [place] [address] Phone Care Team Providers Care Welt Edge Rounder Name Role Phone Amna Davis NP Primary Care Provider [phone] Koko Landon MD Primary Care Provider Koko Landon MD Primary Care Provider Koko Landon MD Unavailable [phone] David Joaquin MD Unavailable JUSTIN [email or web address] [email or web address] Encounter Details Date Type Department Care Team (Late st Contact Info) Description 06/30/2018 Procedure Pass [facility] Imaging [address] [place] [address] Social History Tobacco Use Types Packs/Day Years [...] on filedocumented in this encounter Care Teams Welt Edge Rounder Relationship Specialty Start Date End Date Amna Davis NP [address] [place] [address] [place] [address] PCP - General Family Medicine 03/25/18 06/19/19 Koko Landon MD [address] [place] [address] [place] [address] PCP - General 06/20/19 08/17/21 Koko Landon MD [address] [place] [address] [place] [address] PCP - General 08/18/21 Koko Landon MD [address] [place] [address] [place] [address] 08/18/21 David Joaquin MD [email or web address] Primary Oncologist Neurology 11/08/18 documented as of this encounter Additional Source Comments The information contained in this document represents components of the legal health record. It is not the complete legal health record.[facility]
--- OUTSIDE RECORDS SUMMARY | 2025-07-06 07:35 | XMS_ITS | Clinical Summary ---
Author Organization [facility] Address [address] [place] [address] Phone Care Team Providers Care Pulp Mill Supervisor Name Role Phone Amna Davis Primary Care Provider [phone] Amna Davis Unavailable Koko Mcdonald Unavailable Unavailable Social History Tobacco Use Types Packs/Day Years Used Date Smoking Tobacco: Never Assessed Comments Unknown Sex and Gender Information Value Date Recorded Sex Assigned at Not on file Legal Sex Female 11:02 AM EDT Gender Identity Not on file Sexual Orientation Not on file Plan of Treatment Not on file Care Teams Pulp Mill Supervisor Relationship Specialty Start Date End Date Amna Davis [address] [place] [address] [place] [address] PCP - General 03/25/18 Amna Davis [address] [place] [address] [place] [address] PCP - Clinical PCP 05/09/18 Koko Mcdonald PCP - Insurance PCP 05/09/12
--- OUTSIDE RECORDS SUMMARY | 2025-07-06 07:35 | XMS_ITS | Encounter Summary ---
Author Organization [facility] Address [address] [facility] [address] [place] [address] Phone Care Team Providers Care Comedian Name Role Phone Amna Davis NP Primary Care Provider [phone] Koko Landon MD Primary Care Provider Koko Landon MD Primary Care Provider Koko Landon MD Unavailable [phone] David Joaquin MD Unavailable JUSTIN [email or web address] Encounter Details Date Type Department Care Team (Late st Contact Info) Description 06/30/2018 Procedure Pass [facility] Imaging [address] [place] [address] Social History Tobacco Use Types Packs/Day Years [...] on filedocumented in this encounter Care Teams Comedian Relationship Specialty Start Date End Date Amna Davis NP [address] [place] [address] [place] [address] PCP - General Family Medicine 03/25/18 06/19/19 Koko Landon MD [address] [place] [address] [place] [address] PCP - General 06/20/19 08/17/21 Koko Landon MD [address] [place] [address] [place] [address] PCP - General 08/18/21 Koko Landon MD [address] [place] [address] [place] [address] 08/18/21 David Joaquin MD [email or web address] Primary Oncologist Neurology 11/08/18 documented as of this encounter Additional Source Comments The information contained in this document represents components of the legal health record. It is not the complete legal health record.[facility]
--- OUTSIDE RECORDS SUMMARY | 2025-07-06 07:35 | XMS_ITS | Encounter Summary ---
Author Organization [facility] Address [address] [place] [address] Phone Care Team Providers Care Criminal Justice Lawyer Name Role Phone Francesca Solis MD Primary Care Provider Encounter Details Date Type Department Care Team (Late st Contact Info) Description 04/15/2017 Conversion Encounter [facility] [address] [place] [address] Social History Tobacco Use Types Packs/Day Years [...] on filedocumented in this encounter Care Teams Criminal Justice Lawyer Relationship Specialty Start Date End Date Francesca Solis MD [address] [place] [address] PCP - General 04/09/17 12/06/22 documented as of this encounter
--- OUTSIDE RECORDS SUMMARY | 2025-07-06 07:35 | XMS_ITS | Encounter Summary ---
Author Organization [facility] Address [address] [place] [address] Phone Care Team Providers Care Roll Out Manager Name Role Phone Francesca Solis MD Primary Care Provider Encounter Details Date Type Department Care Team (Late st Contact Info) Description 05/19/2011 Documentation [facility] [place] Family Medicine [address] [place] [address] Family Medicine, Physician [address], [place] [id number] Social History Tobacco Use Types Packs/Day Years [...] on filedocumented in this encounter Care Teams Roll Out Manager Relationship Specialty Start Date End Date Francesca Solis MD [address] [place] [address] BELEN Richardson PCP - General 04/09/17 12/06/22 documented as of this encounter
--- OUTSIDE RECORDS SUMMARY | 2025-07-06 07:35 | XMS_ITS | Encounter Summary ---
Author Organization [facility] Address [address] [facility] [address] [place] [address] Phone Care Team Providers Care Processing Inspector Name Role Phone Amna Davis NP Primary Care Provider [phone] Koko Landon MD Primary Care Provider Koko Landon MD Primary Care Provider Koko Landon MD Unavailable [phone] David Joaquin MD Unavailable JUSTIN [email or web address] Encounter Details Date Type Department Care Team (Late st Contact Info) Description 10/31/2018 Procedure Pass [facility] [place] [place] PERIOPERATIVE DEPT [address] [place] [id number] Social History Tobacco Use Types Packs/Day Years Used Date Smoking Tobacco: Never Smokeless Tobacco: Never Alcohol Use Standard Drinks/Week Comments Yes 0 (1 standard drink = 0.6 oz pur e alcohol) Socially varies weekly Comments No Sex and Gender Information Value [...] on filedocumented in this encounter Care Teams Processing Inspector Relationship Specialty Start Date End Date Amna Davis NP [address] [place] [address] Dr RDZ Chelita [place] [address] PCP - General Family Medicine 03/25/18 06/19/19 Koko Landon MD [address] [place] [address] [place] [address] PCP - General 06/20/19 08/17/21 Koko Landon MD [address] [place] [address] [place] [address] PCP - General 08/18/21 Koko Landon MD [address] [place] [address] [place] [address] 08/18/21 David Joaquin MD [email or web address] Primary Oncologist Neurology 11/08/18 documented as of this encounter Additional Source Comments The information contained in this document represents components of the legal health record. It is not the complete legal health record.[facility]
--- OUTSIDE RECORDS SUMMARY | 2025-07-06 07:35 | XMS_ITS | Encounter Summary ---
Author Organization [facility] Address [address] [place] [address] Phone Care Team Providers Care Java Software Name Role Phone Francesca Solis MD Primary Care Provider Encounter Details Date Type Department Care Team (Late st Contact Info) Description 10/01/2011 Documentation [facility] [place] [address] [place] [address] Family Medicine, Physician [address], [place] [id number] Social History Tobacco Use Types Packs/Day Years [...] on filedocumented in this encounter Care Teams Java Software Relationship Specialty Start Date End Date Francesca Solis MD [address] [place] [address] BELEN Richardson PCP - General 04/09/17 12/06/22 documented as of this encounter
--- OUTSIDE RECORDS SUMMARY | 2025-07-06 07:35 | XMS_ITS | Clinical Summary ---
Author Organization [facility] Address [address] [place] [address] Phone Care Team Providers Care [place] Redevelopment Site Manager Name Role Phone Unavailable Primary Care Provider Unavailabl e Immunizations Immunization Administration Dates Next Due DTP 11/28/1992, 0,02/27/1989,12/28,1988 HPV, Quadrivalent 09/03/2010,04/09/2010,01/17/20 08 Hep B, ped/adol 10/01/2000,04/26/2000,03/26/2000 Hib (PRP-T) 03/30/1990 MMR 10/01/2000,11/28/1989 Meningococcal Conj (Menactra) MCV4P 01/17/2008 OPV 11/28/1992, 0,1988,10/28 Td (adult) (MBL), 2 Lf tetan us toxoid, PF, adsorbed 03/26/2000 Tdap 01/17/2008 Family History Relation Name Status Comments Brother Alive Brother: Alive and well Father Alive Father: Alive a nd well Mother Alive Mother: Alive a nd well Other Family history of Diabetes mellitus Social History Tobacco Use Types Packs/Day Years Used Date Smoking Tobacco: Never Assessed Comments Unknown Sex and Gender Information Value Date Recorded Sex Assigned at Not on file Legal Sex Female 4:39 PM EDT Gender Identity Not on file Sexual Orientation Not on file Last Filed Vital Signs Vital Sign Reading Time Taken Comments Blood Pressure 118/68 04/09/2010 12:00 AM EDT Pulse - - Temperature - - Respiratory Rate - - Oxygen Saturation - - Inhaled Oxygen Concentration - - Weight 56.9 kg (125 lb 8 oz) 04/09/2010 12:00 AM EDT Height 158.2 cm (5' 2.3 ) 04/09/2010 12:00 AM ED T Body Mass Index 22.73 04/09/2010 12:00 AM EDT Plan of Treatment Health Maintenance Due Date Last Done Comments Varicella Vaccines (1 of 2 - 13+ 2-dose series) 2001 DTaP,Tdap,and Td Vaccines (7 - Td or Tdap) 01/16/2018 01/17/2008, 03/26/2000, 11/28/1992, Additional history exists Influenza Vaccines (#1) 2025 COVID-19 Vaccine ( season) 2025 HIB Vaccines Completed 03/30/1990 IPV Vaccines Completed 11/28/1992, 08/1989, 1988, Additional history exists Hepatitis B Vaccines Completed 10/01/2000, 04/26/2000, 03/26/2000 MMR Vaccines Completed 10/01/2000, 11/28/1989 Meningococcal Vaccine Aged Out 01/17/2008 No dee gabrielle eligible based on patient's age to complete this topic HPV Vaccines Completed 09/03/2010, 03/30, 01/17/2008 Hepatitis A Vaccines Aged Out No long er eligible based on patient's age to complete this topic Men B Vaccine Aged Out No longer elig ible based on patient's age to complete this topic Pneumococcal Vaccine Aged Out No long er eligible based on patient's age to complete this topic
--- OUTSIDE RECORDS SUMMARY | 2025-07-06 07:35 | XMS_ITS | Encounter Summary ---
Author Organization [facility] Address [address] [facility] [address] [place] [address] Phone Care Team Providers Care Toe Stapler Name Role Phone Amna Davis NP Primary Care Provider [phone] Koko Landon MD Primary Care Provider Koko Landon MD Primary Care Provider Koko Landon MD Unavailable [phone] David Joaquin MD Unavailable JUSTIN [email or web address] [email or web address] [email or web address] Encounter Details Date Type Department Care Team (Late st Contact Info) Description 06/30/2018 Procedure Pass [facility] General Imaging [address] [place] [address] Social History Tobacco Use Types Packs/Day Years Used Date Smoking Tobacco: Never Assessed Comments No Sex and Gender Information Value [...] on filedocumented in this encounter Care Teams Toe Stapler Relationship Specialty Start Date End Date Amna Davis, TELECOMMUNICATION OPERATOR [address] [place] [address] [place] [address] PCP - General Family Medicine 03/25/18 06/19/19 Koko Landon MD [address] [place] [address] [place] [address] PCP - General 06/20/19 08/17/21 Koko Landon MD [address] [place] [address] [place] [address] PCP - General 08/18/21 Koko Landon MD [address] [place] [address] [place] [address] 08/18/21 David Joaquin MD [email or web address] [email or web address] [email or web address] Primary Oncologist Neurology 11/08/18 documented as of this encounter Additional Source Comments The information contained in this document represents components of the legal health record. It is not the complete legal health record.[facility]
--- OUTSIDE RECORDS SUMMARY | 2025-07-06 07:35 | XMS_ITS | Encounter Summary ---
Author Organization [facility] Address [address] [facility] [address] [place] [address] Phone Care Team Providers Care Orthodontic Assistant Name Role Phone Amna Davis NP Primary Care Provider [phone] Koko Landon MD Primary Care Provider Koko Landon MD Primary Care Provider Koko Landon MD Unavailable [phone] David Joaquin MD Unavailable JUSTIN [email or web address] Encounter Details Date Type Department Care Team (Late st Contact Info) Description 06/30/[address] [facility] Imaging [address] [place] [address] Social History Tobacco Use Types Packs/Day Years [...] on filedocumented in this encounter Care Teams Orthodontic Assistant Relationship Specialty Start Date End Date Amna Davis NP [address] [place] [address] [place] [address] PCP - General Family Medicine 03/25/18 06/19/19 Koko Landon MD [address] [place] [address] [place] [address] PCP - General 06/20/19 08/17/21 Koko Landon MD [address] [place] [address] [place] [address] PCP - General 08/18/21 Koko Landon MD [address] [place] [address] [place] [address] 08/18/21 David Joaquin MD [email or web address] Primary Oncologist Neurology 11/08/18 documented as of this encounter Additional Source Comments The information contained in this document represents components of the legal health record. It is not the complete legal health record.[facility]
--- OUTSIDE RECORDS SUMMARY | 2025-07-06 07:35 | XMS_ITS | Clinical Summary ---
Author Organization [facility] Address [address] [address] Phone Care Team Providers Care Control Tower Radio Operator Name Role Phone Koko Landon MD Primary Care Provider Koko Landon MD Unavailable [phone] David Joaquin MD Unavailable JUSTIN [email or web address] Allergies No known active allergies Medications sertraline (ZOLOFT) 50 MG tablet Take 50 mg by mouth daily. Active LORazepam (ATIVAN) 0.5 MG tablet Take 0.5 mg by mouth every 6 (six) hours as needed for anxiety. Active buPROPion (WELLBUTRIN) 75 MG immediate release tablet Take 75 mg by mouth 2 (two) times a day. Active buPROPion (WELLBUTRIN) 75 MG immediate release tablet 07/27/2021 Acti ve sertraline (ZOLOFT) 50 MG tablet 08/06/2021 Active predniSONE (DELTASONE) 20 MG tablet Take 1 tablet (20 mg total) by mouth daily with breakfast. 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 At high risk for breast cancer 06/24/2019 Immunizations Immunization Administration Dates Next Due COVID-19 (Pre-06/21) Moderna Vaccine, mRNA, PF 01/15/2021,12/18/2020 DTP 11/28/1992, 0,02/27/1989,12/28,1988 HPV,quadrivalent 09/03/2010,04/09/2010, 8 Hepatitis B 10/01/2000,04/26/2000,03/26/2000 Hib,PRP-T 03/30/1990 Influenza Quadrivalent Prese rvative Free IM 06/15/2020 Influenza Quadrivalent w/ Pr eservative IM 05/25/2019 MMR 10/01/2000,11/28/1989 Meningococcal MCV4P 01/17/2008 Polio - OPV 11/28/1992, 0,1988,10/28 Td (adult),2 Lf Tetanus Toxo id, PF, Adsorbed 03/26/2000 Tdap 01/17/2008 Social History Tobacco Use Types Packs/Day Years [...] Orientation Straight 06/14/2020 11 :43 AM EDT Last Filed Vital Signs Vital Sign Reading Time Taken Comments Blood Pressure 127/84 08/18/2021 1:51 PM EST Pulse 82 08/18/2021 1:51 PM EST Temperature 36.7 C (98.1 F) 08/18/2021 1:51 PM EST Respiratory Rate 18 08/18/2021 1:51 PM EST Oxygen Saturation 97% 08/18/2021 1:51 PM EST Inhaled Oxygen Concentration - - Weight 59.9 kg (132 lb 1.6 oz) 07/01/2021 11:54 AM EDT Height 159 cm (5' 2.6 ) 07/01/2021 11:54 AM EDT Body Mass Index 23.7 07/01/2021 11:54 AM EDT Plan of Treatment Health Maintenance Due Date Last Done Comments DEPRESSION SCREENING 2000 HEPATITIS C SCREENING 2006 HIV ONE-TIME SCREENING (18-6 5 YEARS) 2006 PAP SMEAR 2009 Adult Td,Tdap Booster 01/16/2018 01/17/2008 , 03/26/2000 INFLUENZA VACCINE (#1) 2025 , 06/15/2020, 05/25/2019 COVID-19 VACCINE (2024-2 6 season) 2025 01/15/2021, 12/18/2020 HIB VACCINES Completed 03/30/1990 MENINGOCOCCAL VACCINES (ACWY) Aged Out 01/17/2008 No longer eligible based on patient's age to complete this topic SMOKING STATUS SCREENING (On ce After 26 Yrs) Completed 08/18/2021 HEPATITIS A VACCINES Aged Out No long er eligible based on patient's age to complete this topic MENINGOCOCCAL VACCINES (B) Aged Out N o longer eligible based on patient's age to complete this topic PNEUMOCOCCAL VACCINES (0-49 years) Aged Out No longer eligible b ased on patient's age to complete this topic Medical Devices Implanted Type Area Pet Care Associate Device Identifier Shelf Expiration Date Model / Serial / Lot Iud Insurance [employer] HMO POS [facility] ([place]) [address] [place] [address] [facility] POS [facility] POS [facility] POS [facility] POS Member Subscriber Plan / Payer ( fective 2014-Present) Name:Debora Morse E Relation to Subscriber:Self Name:Debora Morse Payer ID:[id number] (NAIC) Type:HMO Address: [place] [id number] Member Subscriber Plan / Payer ( fective 2014-Present) Name:Debora Morse E Relation to Subscriber:Self Name:Debora Morse Payer ID:[id number] (NAIC) Type:HMO Address: [place] [id number] [facility] ([place]) [address] [place] [address] [facility] POS [facility] POS CIGNA HMO POS Care Teams Control Tower Radio Operator Relationship Specialty Start Date End Date Koko Landon MD PCP - General 08/18/21 Koko Landon MD 08/18/21 David Joaquin MD [email or web address] Primary Oncologist Neurology 11/08/18 Additional Source Comments The information contained in this document represents components of the legal health record. It is not the complete legal health record.[facility]
--- OUTSIDE RECORDS SUMMARY | 2025-07-06 07:35 | XMS_ITS | Encounter Summary ---
Author Organization [facility] Address [address] [place] [address] Phone Care Team Providers Care Package Reinspector Name Role Phone Francesca Solis MD Primary Care Provider Encounter Details Date Type Department Care Team (Late st Contact Info) Description 03/16/2011 Documentation [facility] [place] [address] [place] [address] Family Medicine, Physician [address] [phone] Social History Tobacco Use Types Packs/Day Years [...] filedocumented in this encounter Care Teams Package Reinspector Relationship Specialty Start Date End Date Francesca Solis MD [address] [place] [address] BELEN Richardson PCP - General 04/09/17 12/06/22 documented as of this encounter
--- OUTSIDE RECORDS SUMMARY | 2025-07-06 07:35 | XMS_ITS | Encounter Summary ---
Author Organization [facility] Address [address] [facility] [address] [place] [address] Phone Care Team Providers Care Mail Manager Name Role Phone Amna Davis NP Primary Care Provider [phone] Koko Landon MD Primary Care Provider Koko Landon MD Primary Care Provider Koko Landon MD Unavailable [phone] David Joaquin MD Unavailable JUSTIN [email or web address] Encounter Details Date Type Department Care Team (Late st Contact Info) Description 06/30/2018 Procedure Pass [facility] Imaging [address] [place] [address] Social History Tobacco Use Types Packs/Day Years [...] on filedocumented in this encounter Care Teams Mail Manager Relationship Specialty Start Date End Date Amna Davis NP [address] [place] [address] [place] [address] PCP - General Family Medicine 03/25/18 06/19/19 Koko Landon MD [address] [place] [address] [place] [address] PCP - General 06/20/19 08/17/21 Koko Landon MD [address] [place] [address] [place] [address] PCP - General 08/18/21 Koko Landon MD [address] [place] [address] [place] [address] 08/18/21 David Joaquin MD [email or web address] Primary Oncologist Neurology 11/08/18 documented as of this encounter Additional Source Comments The information contained in this document represents components of the legal health record. It is not the complete legal health record.[facility]
[2025-07-06 11:33] LABS: MANUAL DIFF FLAG NO
[2025-07-06 11:36] LABS: Appearance Urine Clear; Glucose Urine UA Negative (Negative); PH 7.5 (5.0-9.0); Specific Gravity - Urine <= 1.005 (1.005-1.025); UMIC TRIGGER UA YES
[2025-07-06 11:46] LABS: Hematocrit 44.6 % (37.0-47.0); Hemoglobin 14.3 g/dl (12.0-16.0); Imm Gran Abs Auto 0.04 X10*3/uL (0.00-0.03); Imm Gran Pct Auto 0.9 % (0.0-0.4); Lymphocytes Absolute Auto 1.3 X10*3/uL (1.2-4.9); Mean Corpuscular HGB Conc 32.1 g/dl (31.0-35.0); Mean Corpuscular Hemoglobin 29.9 pg (27.0-33.0); Mean Corpuscular Volume 93.3 fL (80.0-98.0); NRBC Abs Auto 0.000 X10*3/uL (0.0-0.012); NRBC Pct Auto 0.0 /100WBC (0.0-0.2); Platelet Count 282 X10*3/uL (160-400); Red Blood Count 4.78 X10*6/uL (4.20-5.50); White Blood Count 4.6 X10*3/uL (4.8-10.8)
[2025-07-06 12:11] LABS: Alanine Aminotransferase 22 U/L (0-31); Albumin Level 4.6 g/dL (3.5-5.0); Alkaline Phosphatase 52 U/L (39-117); Anion Gap 9 (12-20); Aspartate Amino Transferase 31 U/L (5-31); Blood Urea Nitrogen 14 mg/dL (9-16); Calcium 8.9 mg/dL (8.4-10.2); Carbon Dioxide 26 mmol/L (22-29); Chloride 103 mmol/L (96-108); Cholesterol 204 mg/dL (<200); Estimated Glomerular Filt Rate > 60; HDL Cholesterol 80 mg/dL (>40); Potassium 4.1 mmol/L (3.3-5.1); Sodium 134 mmol/L (135-145); Total Protein 7.4 g/dL (6.5-8.0); Triglycerides 49 mg/dL (<150)
[2025-07-06 12:20] LABS: Microalbum/Creatinine Ratio Ur 48.2 ug/mg cr (<30)
== END 2025-07-06 07:33 | disposition home or self-care (01) ==
LOC: HO.WFDLDS 07:32
PROVIDERS: Visit Provider Family Medicine
DX: Z00.00 Encounter for general adult medical examination without abnormal findings (principal); I10 Essential (primary) hypertension
CPT/HCPCS: 36415; 80053; 80061; 81001; 82043; 82570; 84443; 85025

== ENCOUNTER 2025-07-13 12:56 | Outpatient (AMB) | payer OTHER, SELFPAY ==
--- OUTSIDE RECORDS SUMMARY | 1998-07-19 | XMS_ITS | Encounter Summary ---
Author Organization [facility] Address [address] [place] [address] Phone Care Team Providers Care Nut Former Name Role Phone Unavailable Primary Care Provider Unavailabl e Reason for Visit * MRI/CAT Scan - Closed Specialty Diagnoses / Procedures Referred By Contac t Referred To Contact Procedures MRI Brain Outside (No Interpretation) David Joaquin MD mailto:[email or web address] Referral ID Status Reason Start Date Expiration Date Visits Re quested Visits Authorized [id number] Closed 06/30/2018 06/30/2019 1 1 Encounter Details Date Type Department Care Team (Late st Contact Info) Description 07/19/1998 Hospital Encounter [facility] General Imaging [address] [place] [address] David Joaquin MD [email or web address] Social History Tobacco Use Types Packs/Day Years [...] It is not the complete legal health record.[facility]
--- OUTSIDE RECORDS SUMMARY | 2000-08-24 | XMS_ITS | Encounter Summary ---
Author Organization [facility] Address [address] [place] [address] Phone Care Team Providers Care Assistant Center Director Name Role Phone Unavailable Primary Care Provider Unavailabl e Reason for Visit * MRI/CAT Scan - Closed Specialty Diagnoses / Procedures Referred By Contac t Referred To Contact Procedures MRI Abdomen Outside (No Interpretation) David Joaquin MD mailto:[email or web address] Referral ID Status Reason Start Date Expiration Date Visits Re quested Visits Authorized [id number] Closed 06/30/2018 06/30/2019 1 1 Encounter Details Date Type Department Care Team (Late st Contact Info) Description 08/24/2000 Hospital Encounter [facility] General Imaging [address] [place] [address] David Joaquin MD [email or web address] Social History Tobacco Use Types Packs/Day Years [...] Name Priority Date/Time Associated Diagnosis Comments MRI ABDOMEN OUTSIDE (NO INTERPRETATION) Routine 08/24/2000 12:00 AM EST documented in this encounter Results * MRI Abdomen Outside (No Interpretation) (08/24/2000 12:00 AM EST) Narrative [facility] IMG INTERFACES - 06/30/2018 10:52 AM EDT This study is for PACS storage only and not for interpretation. us David Joaquin MD IMG OUTSIDE IMAGING W/OU T INTERPRETATION Final Result [facility] IMG INTERFACES documented in this encounter Visit Diagnoses Not on filedocumented in this encounter Additional Source Comments The information contained in this document represents components of the legal health record. It is not the complete legal health record.[facility]
--- OUTSIDE RECORDS SUMMARY | 2002-04-13 23:00 | XMS_ITS | Encounter Summary ---
Author Organization [facility] Address [address] [place] [address] Phone Care Team Providers Care Voice Professor Name Role Phone Unavailable Primary Care Provider Unavailabl e Reason for Visit * MRI/CAT Scan - Closed Specialty Diagnoses / Procedures Referred By Contac t Referred To Contact Procedures MRI Abdomen Outside (No Interpretation) David Joaquin MD mailto:[email or web address] Referral ID Status Reason Start Date Expiration Date Visits Re quested Visits Authorized [id number] Closed 06/30/2018 06/30/2019 1 1 Encounter Details Date Type Department Care Team (Late st Contact Info) Description 04/14/2002 Hospital Encounter [facility] General Imaging [address] [place] [address] David Joaquin MD [email or web address] Social History Tobacco Use Types [...] (No Interpretation) (04/14/2002 12:00 AM EDT) Narrative [facility] IMG INTERFACES - 06/30/2018 10:52 AM EDT This study is for PACS storage only and not for interpretation. us David Joaquin MD IMG OUTSIDE IMAGING W/OU T INTERPRETATION Final Result [facility] IMG INTERFACES documented in this encounter Visit Diagnoses Not on filedocumented in this encounter Additional Source Comments The information contained in this document represents components of the legal health record. It is not the complete legal health record.[facility]
--- OUTSIDE RECORDS SUMMARY | 2004-12-26 23:00 | XMS_ITS | Encounter Summary ---
Author Organization [facility] Address [address] [place] [address] Phone Care Team Providers Care General Engineer Name Role Phone Unavailable Primary Care Provider Unavailabl e Reason for Visit * MRI/CAT Scan - Closed Specialty Diagnoses / Procedures Referred By Contac t Referred To Contact Procedures MRI Abdomen Outside (No Interpretation) David Joaquin MD mailto:[email or web address] Referral ID Status Reason Start Date Expiration Date Visits Re quested Visits Authorized [id number] Closed 06/30/2018 06/30/2019 1 1 Encounter Details Date Type Department Care Team (Late st Contact Info) Description 12/27/2004 Hospital Encounter [facility] General Imaging [address] [place] [address] David Joaquin MD [email or web address] Social History Tobacco Use Types Packs/Day Years [...] Comments MRI ABDOMEN OUTSIDE (NO INTERPRETATION) Routine 12/27/2004 12:00 AM EDT documented in this encounter Results * MRI Abdomen Outside (No Interpretation) (12/27/2004 12:00 AM EDT) Narrative [facility] IMG INTERFACES - 06/30/2018 10:51 AM EDT This study is for PACS storage only and not for interpretation. us David Joaquin MD IMG OUTSIDE IMAGING W/OU T INTERPRETATION Final Result [facility] IMG INTERFACES documented in this encounter Visit Diagnoses Not on filedocumented in this encounter Additional Source Comments The information contained in this document represents components of the legal health record. It is not the complete legal health record.[facility]
--- OUTSIDE RECORDS SUMMARY | 2007-01-01 23:00 | XMS_ITS | Encounter Summary ---
Author Organization [facility] Address [address] [place] [address] Phone Care Team Providers Care Wirer Helper Name Role Phone Unavailable Primary Care Provider Unavailabl e Reason for Visit * MRI/CAT Scan - Closed Specialty Diagnoses / Procedures Referred By Contac t Referred To Contact Procedures MRI Lower Extremity Outside (No Interpretation) David Joaquin MD mailto:[email or web address] Referral ID Status Reason Start Date Expiration Date Visits Re quested Visits Authorized [id number] Closed 06/30/2018 06/30/2019 1 1 Encounter Details Date Type Department Care Team (Late st Contact Info) Description 01/02/2007 Hospital Encounter [facility] General Imaging [address] [place] [address] David Joaquin MD [email or web address] Social History Tobacco Use Types [...] Name Priority Date/Time Associated Diagnosis Comments MRI LOWER EXTREMITY OUTSIDE (NO INTERPRETATION) Routine 01/02/2007 12:00 AM EDT documented in this encounter Results * MRI Lower Extremity Outside (No Interpretation) (01/02/2007 12:00 AM EDT) Narrative [facility] - 06/30/2018 10:50 AM EDT This study is for PACS storage only and not for interpretation. us David Joaquin MD IMG OUTSIDE IMAGING W/OU T INTERPRETATION Final Result [facility] documented in this encounter Visit Diagnoses Not on filedocumented in this encounter Additional Source Comments The information contained in this document represents components of the legal health record. It is not the complete legal health record.[facility]
--- OUTSIDE RECORDS SUMMARY | 2007-01-01 23:15 | XMS_ITS | Encounter Summary ---
Author Organization [facility] Address [address] [place] [address] Phone Care Team Providers Care Building Serviceman Name Role Phone Unavailable Primary Care Provider Unavailabl e Reason for Visit * MRI/CAT Scan - Closed Specialty Diagnoses / Procedures Referred By Contac t Referred To Contact Procedures MRI Abdomen Outside (No Interpretation) David Joaquin MD mailto:[email or web address] Referral ID Status Reason Start Date Expiration Date Visits Re quested Visits Authorized [id number] Closed 06/30/2018 06/30/2019 1 1 Encounter Details Date Type Department Care Team (Late st Contact Info) Description 01/02/2007 12:15 AM EDT Hospital Encounter [facility] Imaging [address] [place] [address] David Joaquin MD [email or web address] Social History Tobacco Use Types [...] Comments MRI ABDOMEN OUTSIDE (NO INTERPRETATION) Routine 01/02/2007 12:15 AM EDT documented in this encounter Results * MRI Abdomen Outside (No Interpretation) (01/02/2007 12:15 AM EDT) Narrative [facility] [place] - 06/30/2018 10:50 AM EDT This study is for PACS storage only and not for interpretation. us David Joaquin MD IMG OUTSIDE IMAGING W/OU T INTERPRETATION Final Result [facility] documented in this encounter Visit Diagnoses Not on filedocumented in this encounter Additional Source Comments The information contained in this document represents components of the legal health record. It is not the complete legal health record.[facility]
--- OUTSIDE RECORDS SUMMARY | 2007-01-31 23:00 | XMS_ITS | Encounter Summary ---
Author Organization [facility] Address [address] [facility] [address] [place] [phone] Phone Care Team Providers Care Html Web Developer Name Role Phone Unavailable Primary Care Provider Unavailabl e Reason for Visit * MRI/CAT Scan - Closed Specialty Diagnoses / Procedures Referred By Contac t Referred To Contact Procedures MRI Spine (Neuro) Outside (No Interpretation) David Joaquin MD mailto:[email or web address] Referral ID Status Reason Start Date Expiration Date Visits Re quested Visits Authorized [id number] Closed 06/30/2018 06/30/2019 1 1 Encounter Details Date Type Department Care Team (Late st Contact Info) Description 02/01/2007 Hospital Encounter [facility] [address] [place] [address] David Joaquin MD [email or web address] Social History Tobacco Use Types Packs/Day Years [...] (No Interpretation) (02/01/2007 12:00 AM EDT) Narrative [facility] IMG INTERFACES - 06/30/2018 10:49 AM EDT This study is for PACS storage only and not for interpretation. us David Joaquin MD IMG OUTSIDE IMAGING W/OU T INTERPRETATION Final Result [facility] IMG INTERFACES documented in this encounter Visit Diagnoses Not on filedocumented in this encounter Additional Source Comments The information contained in this document represents components of the legal health record. It is not the complete legal health record.[facility]
--- OUTSIDE RECORDS SUMMARY | 2007-08-22 | XMS_ITS | Encounter Summary ---
Author Organization [facility] Address [address] [facility] [address] [place] [phone] Phone Care Team Providers Care Hi Ranger Operator Name Role Phone Unavailable Primary Care Provider Unavailabl e Reason for Visit * MRI/CAT Scan - Closed Specialty Diagnoses / Procedures Referred By Contac t Referred To Contact Procedures MRI Spine (Neuro) Outside (No Interpretation) David Joaquin MD mailto:[email or web address] Referral ID Status Reason Start Date Expiration Date Visits Re quested Visits Authorized [id number] Closed 06/30/2018 06/30/2019 1 1 Encounter Details Date Type Department Care Team (Late st Contact Info) Description 08/22/2007 Hospital Encounter [facility] [address] [place] [address] David Joaquin MD [email or web address] Social History Tobacco Use Types [...] (No Interpretation) (08/22/2007 12:00 AM EST) Narrative [facility] IMG INTERFACES - 06/30/2018 10:49 AM EDT This study is for PACS storage only and not for interpretation. us David Joaquin MD IMG OUTSIDE IMAGING W/OU T INTERPRETATION Final Result [facility] IMG INTERFACES documented in this encounter Visit Diagnoses Not on filedocumented in this encounter Additional Source Comments The information contained in this document represents components of the legal health record. It is not the complete legal health record.[facility]
--- OUTSIDE RECORDS SUMMARY | 2011-03-08 23:00 | XMS_ITS | Encounter Summary ---
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 Name Role Phone Unavailable Primary Care Provider Unavailabl e Reason for Visit * MRI/CAT Scan - Closed Specialty Diagnoses / Procedures Referred By Contac t Referred To Contact Procedures MRI Spine (Neuro) Outside (No Interpretation) David Joaquin MD mailto:[email or web address] Referral ID Status Reason Start Date Expiration Date Visits Re quested Visits Authorized [id number] Closed 06/30/2018 06/30/2019 1 1 Encounter Details Date Type Department Care Team (Late st Contact Info) Description 03/09/2011 Hospital Encounter [facility] [address] [place] [address] David Joaquin MD [email or web address] [email or web address] Social History Tobacco Use Types [...] (No Interpretation) (03/09/2011 12:00 AM EDT) Narrative [facility] IMG INTERFACES - 06/30/2018 10:48 AM EDT This study is for PACS storage only and not for interpretation. us David Joaquin MD IMG OUTSIDE IMAGING W/OU T INTERPRETATION Final Result [facility] IMG INTERFACES documented in this encounter Visit Diagnoses Not on filedocumented in this encounter Additional Source Comments The information contained in this document represents components of the legal health record. It is not the complete legal health record.[facility]
--- NOTE | 2025-07-13 12:59 | A.OFFPC_ITS ---
Vital Signs 07/13/25 13:05 Height 5 ft 2 in Weight 132 lb 4 oz BMI 24.2 BP 110/60 Blood Pressure Location Rt brachial Position Sitting Respiration 16 Pulse 78 Pulse Source Pulse Oximeter Temp 98.8 F Temp Source Temporal Artery Scan Pulse Oximetry (%) 98 Oxygen Delivery Method Room Air Intake Visit Reasons: CPE with f/u labs and health maint. Intake Note: Debora presents in the office today for her annual physical and a review of her lab results. Allergies No Known Allergies Allergy (Verified 07/13/25 13:03) Tobacco use date assessed: 07/13/25 Dental Screening Dental Screen Date: 07/13/25 Did you have a dental visit in the last 12 months?: Yes Did you have a dental problem in the last 6 months where you did not have access to dental care?: No Was dental information given to patient?: Patient has dentist HPI CPE with f/u labs and health maint. HPI Details 34 y/o female presents for a CPE with f/ u labs and health maint. Labs drawn 07/06/25. Reviewed labs with pt. Sodium mildly low at 134 mmol/L. Triglycerides 49. TC 204. LDL 115. HDL 80. TSH 1.53. Microalb/Creat ratio 48.2. 1+ urine bacteria seen. HPI Comments History of Present Illness Details Documentation assistance for Koko Landon MD, was provided by Alen Tejada, Blending Supervisor on 07/13/2025 at 1:20 PM EST. I, Dr. Landon, have read, observed, and verified documentation. [facility] Medical History (Updated 07/13/25 @ 13:19 by Alen Tejada) Remove/insert IUD Anxiety Surgical History (Updated 07/07/24 @ 09:21 by EROS Gates) Status post surgical removal of both fallopian tubes History of hip surgery History of surgery Social History (Updated 07/13/25 @ 13:05 by Maricruz Arriaga CMA) Housing: House Alcohol intake: current Alcohol intake frequency: a few times a month Patient Tobacco Use Status: Never used Tobacco e-Cigarette/Vaping Use: Never Used Second Hand Smoke Exposure: No service: No Current occupational status: employed Current occupation: [employer] Current occupational exposures/hazards: No Cognitive needs: No Hearing needs: No Vision needs: Yes (glasses/contacts) Questionnaire PHQ-9 Over the last 2 weeks, how often have you been bothered by any of the following problems? 1. Little interest or pleasure in doing things: not at all 2. Feeling down, depressed, or hopeless: several days 3. Trouble falling or staying asleep, or sleeping too much: several days 4. Feeling tired or having little energy: several days 5. Poor appetite or overeating: not at all 6. Feeling bad about yourself - or that you are a failure or have let yourself or your family down: several days 7. Trouble concentrating on things, such as reading the newspaper or watching television: not at all 8. Moving or speaking so slowly that other people could have noticed. Or the opposite - being so fidgety or restless that you have been moving around a lot more than usual: not at all 9. Thoughts that you would be better off or of hurting yourself in some way: not at all Total score: 4 Depression Screening Interpretation: Negative Depression Screening Done: Yes 44599 - PHQ-9 Billing: Yes Source: Developed by Drs. Sathya Mueller, Anh Wheeler, Jonathan Ritter and colleagues, with an educational karina from [employer]. Thrive Questionnaire Date Thrive assessed: 07/13/25 I am a: Patient What is your living situation today?: I have a steady place to live Within the past 12 months, did the food you bought not last and you didn't have the money to get more?: Never true Within the past 12 months, did you worry whether your food would run out before you got money to buy more?: Never true Do you have trouble paying for medicines?: No Do you have trouble getting transportation to medical appointments?: No Do you have trouble paying your heating and electricity bill?: No Do you have trouble taking care of your child, family member or friend?: No Do you have trouble with day-to-day activities such as bathing, preparing meals, shopping, managing finances, etc.?: No Are you currently unemployed and looking for a job?: No Are you interested in more education?: No Please select the resources that you would like help with: None Currently or been in a relationship where the following occur: No concerns reported THRIVE Score: 0 AUDIT C Alcohol Use Questionnaire (AUDIT-C) 1. How often do you have a drink containing alcohol?: Monthly or less 2. How many drinks containing alcohol do you have on a typical day when you are drinking?: 1 or 2 3. How often do you have six or more drinks on one occasion?: Never Total Score: 1 ROXI-7 AMB Questionnaire ROXI-7 Date ROXI - 7 assessed: 07/13/25 Feeling nervous, anxious, or on edge: 1 = Several days Not being able to stop or control worryin = Several days Worrying too much about different things: 1 = Several days Trouble relaxin = Several days Being so restless that it is hard to sit still: 1 = Several days Becoming easily annoyed or irritable: 1 = Several days Feeling afraid as if something awful might happen: 1 = Several days Total ROXI-7 score (0-4 normal; 5-9 mild; 10-14 moderate; 15-21 severe): 7 Source: Developed by Drs. Sathya Mueller, Anh Wheeler, Jonathan Ritter and colleagues, with an educational karina from [employer]. ROXI-7 Assessment Billing ROXI-7 Assessment Tool: ROXI-7 Assessment 92168 Review of Systems Const Denies chills, Denies fatigue, Denies fever(s), Denies headache(s) and Denies weakness Eyes Denies change in vision ENT Denies dizziness, Denies headache(s), Denies hearing loss, Denies nasal congestion, Denies sinus pain, Denies sinus pressure and Denies sore throat Card Denies chest pain, Denies lightheadedness, Denies dyspnea and Denies other (palpitations) Resp Denies cough, Denies dyspnea and Denies wheezing GI Denies abdominal pain, Denies melena, Denies hematochezia, Denies change in bowel habits, Denies dyspepsia and Denies nausea Denies hematuria and Denies dysuria Musc Denies abnormal gait, Denies myalgias, Denies arthralgias, Denies numbness and Denies tingling Skin/Breast Denies rash, Denies unusual bruising and Denies wounds Neuro Denies abnormal gait, Denies dizziness, Denies headache(s), Denies memory loss, Denies numbness, Denies Sensory deficit (Neuro), Denies tingling and Denies weakness Psych Denies anxiety, Denies depression and Denies memory loss Endo Denies cold intolerance, Denies fatigue, Denies heat intolerance, Denies polydipsia and Denies polyuria Michael/Lymph Denies easy bleeding and Denies easy bruising Aller/Immun Denies wheezing Physical exam (Primary Care) Vital Signs: Last Vital Signs Temp 98.8 F 07/13/25 13:05 Pulse 78 07/13/25 13:05 Resp 16 07/13/25 13:05 BP 110/60 07/13/25 13:05 Pulse Ox 98 07/13/25 13:05 Oxygen Delivery Method Room Air 07/13/25 13:05 BMI result Body Mass Index 24.2 Tobacco/Smoking Status: Tobacco use Status Tobacco use date assessed 07/13/25 07/13/25 13:08 Patient Tobacco Use Status Never used Tobacco 07/13/25 13:05 e-Cigarette/Vaping Use Never Used 07/13/25 13:05 PHQ-9: PHQ-9 Score PHQ-9: Total score 4 07/13/25 13:15 Depression Screening Interpretation: Negative Thrive Assessment: Date of Thrive Assessment Date Thrive assessed 07/13/25 07/13/25 13:02 Currently or been in a relationship where the following occur: No concerns reported Const General: no acute distress, well developed, alert and awake Nutritional Appearance: well nourished Orientation/consciousness: patient oriented x3 HENMT Head: Yes normocephalic and Yes atraumatic Ears: hearing grossly normal bilaterally and TM's normal bilaterally General nose exam: Normal external nose present and Normal nares present Mouth: Normal oral and palatal mucosa present and moist mucous membranes Teeth and gingiva: dentition normal Throat: Yes posterior oropharynx normal Eyes General: appearance normal, both eyes and all related structures Pupils: Equal, round and reactive pupils present and Pupil accommodation reflex normal EOM: EOMs intact bilaterally Neck Neck: Yes normal visual inspection, Yes no lymphadenopathy and Yes trachea midline Thyroid: Thyroid normal Carotids: no bruits Lymphatic: no lymphadenopathy noted Chest Chest palpation & inspection: normal inspection of the chest Resp Effort & Inspection: normal respiratory effort Auscultation: clear to auscultation bilaterally Cardio Rate: regular rate Rhythm: regular rhythm Heart sounds: S1 normal heart sound present, S2 normal heart sound present, no gallops, no murmurs and no rubs Bruits: no abdominal aortic bruits and no carotid bruits GI Palpation (GI): No Abdominal aortic bruit present, Soft to palpation, nontender, No hepatosplenomegaly present and No Rebound tenderness present Auscultation: normal bowel sounds General: Yes no CVA tenderness Back/Spine/Pelvis Back: no CVA tenderness Cervical Spine: cervical ROM normal and No Cervical spine tenderness Thoracic/Lumbar Spine: thoraco-lumbar ROM normal, No pain with thoraco-lumbar RO M, No thoracic spinal tenderness and No lumbar spinal tenderness Skin Lesions: no lesions Rashes: no rashes Trauma: no lacerations or abrasions Wounds: no wounds Nails: normal Neuro General: patient oriented x3 Cranial nerves: Yes Equal, round and reactive pupils present Cognition (Neuro): normal cognition Gait exam (Neuro): Normal gait present Motor exam (neuro): 5/5 motor strength present throughout Sensory Exam: No Sensory deficit (Neuro) Deep tendon reflexes (DTR's): Right patellar reflex intensity grade: 2+ and Left patellar reflex intensity grade: 2+ Extrem General: Yes normal to inspection and No edema Psych Appearance: grossly normal Affect: normal affect Attitude: cooperative Thought process: Normal thought process present Coding Level of Care Code Est Pt Level 3 (07242) Est Pt Prev Care 18-39y(67210) Diagnoses Adult general medical exam Z00.00 Elevated LDL cholesterol level E78.00 Neurofibromatosis, 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 Screening for cervical cancer Z12.4 Breast cancer screening by mammogram Z12.31 Additional Codes ROXI-7 Assessment Billing - ROXI-7 Assessment Tool: ROXI-7 Assessment 98185 ([id number]) PHQ-9 - 88891 - PHQ-9 Billing: Yes ([id number]) Assessment & Plan Assessment & Plan (1) Adult general medical exam: Code(s): Z00.00 - Encounter for general adult medical examination without abnormal findings Category: Medical Plan: 34-year-old female presents for complete physical exam Encouraged healthy diet with active lifestyle and plenty of exercise (2) Elevated LDL cholesterol level: Code(s): E78.00 - Pure hypercholesterolemia, unspecified Category: Medical Plan: LDL cholesterol is a little elevated. 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 Encouraged her to call her raw mill operator Asked her to have Pap smear and mammogram reports sent to me as well.
[2025-07-13 13:05] VITALS: BP 110/60; PULSE 78; RESP 16; TEMP 37.1; O2SAT 98; BMI 24.2
--- OUTSIDE RECORDS SUMMARY | 2025-07-13 18:55 | XMS_ITS | Encounter Summary ---
Author Organization [facility] Address [address] [facility] [place], [place] [address] [place] [address] Phone Care Team Providers Care Crystallography Teacher Name Role Phone Amna Davis NP Primary Care Provider [phone] Koko Landon MD Primary Care Provider Koko Landon MD Primary Care Provider Koko Landon MD Unavailable [phone] David Joaquin MD Unavailable JUSTIN [email or web address] Encounter Details Date Type Department Care Team (Late st Contact Info) Description 10/31/2018 Procedure Pass [facility] PERIOPERATIVE DEPT [address] [place] [id number] Social History Tobacco Use Types Packs/Day Years [...] on filedocumented in this encounter Care Teams Crystallography Teacher Relationship Specialty Start Date End Date Amna Davis NP [address] [place] [address] Dr RDZ Chelita BELEN [place] [address] PCP - General Family Medicine 03/25/18 06/19/19 Koko Landon MD [address] [place] [address] [place] [address] PCP - General 06/20/19 08/17/21 Koko Landon MD [address] [place] [address] [place] [address] PCP - General 08/18/21 Koko Landon MD [address] [place] [address] [place] [address] 08/18/21 David Joaquin MD [email or web address] Primary Oncologist Neurology 11/08/18 documented as of this encounter Additional Source Comments The information contained in this document represents components of the legal health record. It is not the complete legal health record.[facility]
--- OUTSIDE RECORDS SUMMARY | 2025-07-13 18:55 | XMS_ITS | Encounter Summary ---
Author Organization [facility] Address [address] [facility] [address] [place] [address] Phone Care Team Providers Care Rheumatologist Name Role Phone Amna Davis NP Primary Care Provider [phone] Koko Landon MD Primary Care Provider Koko Landon MD Primary Care Provider Koko Landon MD Unavailable [phone] David Joaquin MD Unavailable JUSTIN [email or web address] [email or web address] Encounter Details Date Type Department Care Team (Late st Contact Info) Description 06/30/2018 Procedure Pass [facility] General Imaging [address] [place] [address] Social History Tobacco Use Types Packs/Day Years [...] on filedocumented in this encounter Care Teams Rheumatologist Relationship Specialty Start Date End Date Amna Davis, NET WASHER [address] [place] [address] [place] [address] PCP - General Family Medicine 03/25/18 06/19/19 Koko Landon MD [address] [place] [address] [place] [address] PCP - General 06/20/19 08/17/21 Koko Landon MD [address] [place] [address] [place] [address] PCP - General 08/18/21 Koko Landon MD [address] [place] [address] [place] [address] 08/18/21 David Joaquin MD [email or web address] Primary Oncologist Neurology 11/08/18 documented as of this encounter Additional Source Comments The information contained in this document represents components of the legal health record. It is not the complete legal health record.[facility]
--- OUTSIDE RECORDS SUMMARY | 2025-07-13 18:56 | XMS_ITS | Encounter Summary ---
Author Organization [facility] Address [address] [facility] [address] [place] [address] Phone Care Team Providers Care Surveyor Helper Name Role Phone Amna Davis NP Primary Care Provider [phone] Koko Landon MD Primary Care Provider Koko Landon MD Primary Care Provider Koko Landon MD Unavailable [phone] David Joaquin MD Unavailable JUSTIN [email or web address] [email or web address] Encounter Details Date Type Department Care Team (Late st Contact Info) Description 06/30/2018 Procedure Pass [facility] Imaging [address] [place] [address] Social History Tobacco Use Types Packs/Day Years [...] on filedocumented in this encounter Care Teams Surveyor Helper Relationship Specialty Start Date End Date Amna Davis NP [address] [place] [address] [place] [address] PCP - General Family Medicine 03/25/18 06/19/19 Koko Landon MD [address] [place] [address] [place] [address] PCP - General 06/20/19 08/17/21 Koko Landon MD [address] [place] [address] [place] [address] PCP - General 08/18/21 Koko Landon MD [address] [place] [address] [place] [address] 08/18/21 David Joaquin MD [email or web address] [email or web address] Primary Oncologist Neurology 11/08/18 documented as of this encounter Additional Source Comments The information contained in this document represents components of the legal health record. It is not the complete legal health record.[facility]
--- OUTSIDE RECORDS SUMMARY | 2025-07-13 18:56 | XMS_ITS | Encounter Summary ---
Author Organization [facility] Address [address] [facility] [address] [place] [address] Phone Care Team Providers Care Broker Assistant Name Role Phone Amna Davis NP Primary Care Provider [phone] Koko Landon MD Primary Care Provider Koko Landon MD Primary Care Provider Koko Landon MD Unavailable David Joaquin MD Unavailable JUSTIN [email or web address] Encounter Details Date Type Department Care Team (Late st Contact Info) Description 06/30/2018 Procedure Pass [facility] Imaging [address] [place] [address] Social History Tobacco Use Types Packs/Day Years [...] on filedocumented in this encounter Care Teams Broker Assistant Relationship Specialty Start Date End Date Amna Davis NP [address] [place] [address] [place] [address] PCP - General Family Medicine 03/25/18 06/19/19 Koko Landon MD [address] [place] [address] [place] [address] PCP - General 06/20/19 08/17/21 Koko Landon MD [address] [place] [address] [place] [address] PCP - General 08/18/21 Koko Landon MD [address] [place] [address] [place] [address] 08/18/21 David Joaquin MD [email or web address] Primary Oncologist Neurology 11/08/18 documented as of this encounter Additional Source Comments The information contained in this document represents components of the legal health record. It is not the complete legal health record.[facility]
--- OUTSIDE RECORDS SUMMARY | 2025-07-13 18:56 | XMS_ITS | Encounter Summary ---
Author Organization [facility] Address [address] [facility] [address] [place] [address] Phone Care Team Providers Care Account Support Associate Name Role Phone Amna Dvais NP Primary Care Provider [phone] Koko Landon MD Primary Care Provider Koko Landon MD Primary Care Provider Koko Landon MD Unavailable [phone] David Joaquin MD Unavailable JUSTIN [email or web address] Encounter Details Date Type Department Care Team (Late st Contact Info) Description 06/30/2018 Procedure Pass [facility] [address] [place] [address] Social History Tobacco Use Types Packs/Day Years [...] on filedocumented in this encounter Care Teams Account Support Associate Relationship Specialty Start Date End Date Amna Davis NP [address] [place] [address] [place] [address] PCP - General Family Medicine 03/25/18 06/19/19 Koko Landon MD [address] [place] [address] [place] [address] PCP - General 06/20/19 08/17/21 Koko Landon MD [address] [place] [address] [place] [address] PCP - General 08/18/21 Koko Landon MD [address] [place] [address] [place] [address] 08/18/21 David Joaquin MD [email or web address] Primary Oncologist Neurology 11/08/18 documented as of this encounter Additional Source Comments The information contained in this document represents components of the legal health record. It is not the complete legal health record.[facility]
--- OUTSIDE RECORDS SUMMARY | 2025-07-13 18:56 | XMS_ITS | Encounter Summary ---
Author Organization [facility] Address [address] [facility] [address] [place] [address] Phone Care Team Providers Care Crown Attacher Name Role Phone Amna Davis NP Primary Care Provider [phone] Koko Landon MD Primary Care Provider Koko Landon MD Primary Care Provider Koko Landon MD Unavailable [phone] David Joaquin MD Unavailable JUSTIN [email or web address] Encounter Details Date Type Department Care Team (Late st Contact Info) Description 06/30/2018 Procedure Pass [facility] Imaging [address] [place] [address] Social History Tobacco Use Types Packs/Day Years [...] on filedocumented in this encounter Care Teams Crown Attacher Relationship Specialty Start Date End Date Amna Davis NP [address] [place] [address] [place] [address] PCP - General Family Medicine 03/25/18 06/19/19 Koko Landon MD [address] [place] [address] [place] [address] PCP - General 06/20/19 08/17/21 Koko Landon MD [address] [place] [address] [place] [address] PCP - General 08/18/21 Koko Landon MD [address] [place] [address] [place] [address] 08/18/21 David Joaquin MD [email or web address] Primary Oncologist Neurology 11/08/18 documented as of this encounter Additional Source Comments The information contained in this document represents components of the legal health record. It is not the complete legal health record.[facility]
--- OUTSIDE RECORDS SUMMARY | 2025-07-13 18:56 | XMS_ITS | Encounter Summary ---
Author Organization [facility] Address [address] [facility] [address] [place] [address] Phone Care Team Providers Care Assistant Maintenance Manager Name Role Phone Amna Davis NP Primary Care Provider [phone] Koko Landon MD Primary Care Provider Koko Landon MD Primary Care Provider Koko Landon MD Unavailable [phone] David Joaquin MD Unavailable JUSTIN [email or web address] [email or web address] Encounter Details Date Type Department Care Team (Late st Contact Info) Description 06/30/2018 Procedure Pass [facility] Imaging [address] [place] [address] Social History Tobacco Use Types Packs/Day Years [...] on filedocumented in this encounter Care Teams Assistant Maintenance Manager Relationship Specialty Start Date End Date Amna Davis NP [address] [place] [address] [place] [address] PCP - General Family Medicine 03/25/18 06/19/19 Koko Landon MD [address] [place] [address] [place] [address] PCP - General 06/20/19 08/17/21 Koko Landon MD [address] [place] [address] [place] [address] PCP - General 08/18/21 Koko Landon MD [address] [place] [address] [place] [address] 08/18/21 David Joaquin MD [email or web address] Primary Oncologist Neurology 11/08/18 documented as of this encounter Additional Source Comments The information contained in this document represents components of the legal health record. It is not the complete legal health record.[facility]
--- OUTSIDE RECORDS SUMMARY | 2025-07-13 18:56 | XMS_ITS | Clinical Summary ---
Author Organization [facility] Address [address] [address] Phone Care Team Providers Care Jacquard Plate Maker Name Role Phone Koko Landon MD Primary Care Provider Koko Landon MD Unavailable [phone] David Joaquin MD Unavailable JUSTIN [email or web address] Allergies No known active allergies Medications sertraline [...] HEPATITIS C SCREENING 2006 HIV ONE-TIME SCREENING (18-65 YEARS) 2006 PNEUMOCOCCAL VACCINES (0-49 years) (1 of 2 - PCV) 2007 PAP SMEAR 2009 Adult Td,Tdap Booster 01/16/2018 01/17/2008, 000 INFLUENZA VACCINE (#1) 2025 , 06/15/2020, 05/25/2019 COVID-19 VACCINE (3 - 2024- season) 2025 01/15/2021, 12/18/2020 HIB VACCINES Completed 03/30/1990 IPV VACCINES Completed 11/28/1992, 08/1989, 1988, Additional history exists MENINGOCOCCAL VACCINES (ACWY) Aged Out 01/17/2008 No longer eligible based on patient's age to complete this topic SMOKING STATUS SCREENING (Once After 26 Yrs) Completed 08/18/2021 HEPATITIS A VACCINES Aged Out No long er eligible based on patient's age to complete this topic MENINGOCOCCAL VACCINES (B) Aged Out N o longer eligible based on patient's age to complete this topic Medical Devices Implanted Type Area Flatwork Washer Device Identifier Shelf Expiration Date Model / Serial / Lot Iud Insurance [employer]IG[employer] HMO POS [facility] HMO POS [facility] HMO POS ([place]) [address] [place] [address] [facility] HMO POS [facility] HMO POS Member Subscriber Plan / Payer (Ef fective 2014-Present) Name:Debora Morse E Relation to Subscriber:Self Name:Debora Morse Payer ID:[id number] ([facility]) Type:HMO Address: [place] [id number] [facility] H[facility] POS [facility] CIGNA HMO POS [facility] Address: [facility] [address] [place] [address] Care Teams Jacquard Plate Maker Relationship Specialty Start Date End Date Koko Landon MD PCP - General 08/18/21 Koko Landon MD 08/18/21 David Joaquin MD [email or web address] Primary Oncologist Neurology 11/08/18 Additional Source Comments The information contained in this document represents components of the legal health record. It is not the complete legal health record.[facility]
--- OUTSIDE RECORDS SUMMARY | 2025-07-13 18:57 | XMS_ITS | Encounter Summary ---
Author Organization [facility] Address [address] [place] [address] Phone Care Team Providers Care Printing Assistant Name Role Phone Francesca Solis MD Primary Care Provider [phone] Encounter Details Date Type Department Care Team (Late st Contact Info) Description 05/19/2011 Documentation [facility] [address] [place] [address] Family Medicine, Physician [address] [id number] Social History Tobacco Use Types Packs/Day Years [...] on filedocumented in this encounter Care Teams Printing Assistant Relationship Specialty Start Date End Date Francesca Solis MD [address] [place] [address] BELEN Richardson PCP - General 04/09/17 12/06/22 documented as of this encounter
--- OUTSIDE RECORDS SUMMARY | 2025-07-13 18:57 | XMS_ITS | Encounter Summary ---
Author Organization [facility] Address [address] [place] [address] Phone Care Team Providers Care Arabic Linguist Name Role Phone Francesca Solis MD Primary Care Provider Encounter Details Date Type Department Care Team (Late st Contact Info) Description 03/16/2011 Documentation [facility] [place] [address] [place] [address] Family Medicine, Physician [address] [place], [place] [id number] Social History Tobacco Use Types Packs/Day Years [...] on filedocumented in this encounter Care Teams Arabic Linguist Relationship Specialty Start Date End Date Francesca Solis MD [address] [place] [address] BELEN Richardson PCP - General 04/09/17 12/06/22 documented as of this encounter
--- OUTSIDE RECORDS SUMMARY | 2025-07-13 18:57 | XMS_ITS | Encounter Summary ---
Author Organization [facility] Address [address] [facility] [address] [place] [address] Phone Care Team Providers Care Ssis Architect Name Role Phone Amna Davis NP Primary Care Provider [phone] Koko Landon MD Primary Care Provider Koko Landon MD Primary Care Provider Koko Landon MD Unavailable David Joaquin MD Unavailable JUSTIN [email or web address] [email or web address] Encounter Details Date Type Department Care Team (Late st Contact Info) Description 06/30/2018 Procedure Pass [facility] Imaging [address] [place] [address] Social History Tobacco Use Types Packs/Day Years [...] on filedocumented in this encounter Care Teams Ssis Architect Relationship Specialty Start Date End Date Amna Davis NP [address] [place] [address] [place] [address] PCP - General Family Medicine 03/25/18 06/19/19 Koko Landon MD [address] [place] [address] [place] [address] PCP - General 06/20/19 08/17/21 Koko Landon MD [address] [place] [address] [place] [address] PCP - General 08/18/21 Koko Landon MD [address] [place] [address] [place] [address] 08/18/21 David Joaquin MD [email or web address] [email or web address] Primary Oncologist Neurology 11/08/18 documented as of this encounter Additional Source Comments The information contained in this document represents components of the legal health record. It is not the complete legal health record.[facility]
--- OUTSIDE RECORDS SUMMARY | 2025-07-13 18:57 | XMS_ITS | Encounter Summary ---
Author Organization [facility] Address 399 [facility] [address] [place] [address] Phone Care Team Providers Care Sole Blacker Name Role Phone Amna Davis NP Primary Care Provider [phone] Koko Landon MD Primary Care Provider Koko Landon MD Primary Care Provider Koko Landon MD Unavailable [phone] David Joaquin MD Unavailable JUSTIN [email or web address] Encounter Details Date Type Department Care Team (Late st Contact Info) Description 06/30/2018 Procedure Pass [facility] [address] [place] [address] Social History Tobacco Use Types Packs/Day Years [...] on filedocumented in this encounter Care Teams Sole Blacker Relationship Specialty Start Date End Date Amna Davis NP [address] [place] [address] [place] [address] PCP - General Family Medicine 03/25/18 06/19/19 Koko Landon MD [address] [place] [address] [place] [address] PCP - General 06/20/19 08/17/21 Koko Landon MD [address] [place] [address] [place] [address] PCP - General 08/18/21 Koko Landon MD [address] [place] [address] [place] [address] 08/18/21 David Joaquin MD [email or web address] Primary Oncologist Neurology 11/08/18 documented as of this encounter Additional Source Comments The information contained in this document represents components of the legal health record. It is not the complete legal health record.[facility]
--- OUTSIDE RECORDS SUMMARY | 2025-07-13 18:57 | XMS_ITS | Encounter Summary ---
Author Organization [facility] Address [address] [place] [address] Phone Care Team Providers Care Pad Tufter Name Role Phone Francesca Solis MD Primary Care Provider Encounter Details Date Type Department Care Team (Late st Contact Info) Description 03/16/2011 Documentation [facility] [place] [address] [place] [address] Family Medicine, Physician [address] [place] [phone] Social History Tobacco Use Types Packs/Day Years [...] on filedocumented in this encounter Care Teams Pad Tufter Relationship Specialty Start Date End Date Francesca Solis MD [address] [place] [address] BELEN Richardson PCP - General 04/09/17 12/06/22 documented as of this encounter
--- OUTSIDE RECORDS SUMMARY | 2025-07-13 18:58 | XMS_ITS | Encounter Summary ---
Author Organization [facility] Address [address] [place] [address] Phone Care Team Providers Care Nurse First Assist Name Role Phone Francesca Solis MD Primary Care Provider Encounter Details Date Type Department Care Team (Late st Contact Info) Description 04/15/2017 Conversion Encounter [facility] [address] [place] [address] Social History Tobacco Use Types Packs/Day Years [...] on filedocumented in this encounter Care Teams Nurse First Assist Relationship Specialty Start Date End Date Francesca Solis MD [address] [place] [address] PCP - General 04/09/17 12/06/22 documented as of this encounter
--- OUTSIDE RECORDS SUMMARY | 2025-07-13 18:58 | XMS_ITS | Encounter Summary ---
Author Organization [facility] Address 399 [facility] [address] [place] [address] Phone Care Team Providers Care Ground Layer Name Role Phone Amna Davis NP Primary Care Provider [phone] Koko Landon MD Primary Care Provider Koko Landon MD Primary Care Provider Koko Landon MD Unavailable [phone] David Joaquin MD Unavailable JUSTIN [email or web address] Encounter Details Date Type Department Care Team (Late st Contact Info) Description 06/30/2018 Procedure Pass [facility] Imaging [address] [place] [address] Social History Tobacco Use Types Packs/Day Years [...] on filedocumented in this encounter Care Teams Ground Layer Relationship Specialty Start Date End Date Amna Davis NP [address] [place] [address] [place] [address] PCP - General Family Medicine 03/25/18 06/19/19 Koko Landon MD [address] [place] [address] [place] [address] PCP - General 06/20/19 08/17/21 Koko Landon MD [address] [place] [address] [place] [address] PCP - General 08/18/21 Koko Landon MD [address] [place] [address] [place] [address] 08/18/21 David Joaquin MD [email or web address] Primary Oncologist Neurology 11/08/18 documented as of this encounter Additional Source Comments The information contained in this document represents components of the legal health record. It is not the complete legal health record.[facility]
--- OUTSIDE RECORDS SUMMARY | 2025-07-13 18:58 | XMS_ITS | Clinical Summary ---
Author Organization [facility] Address [address] [place] [address] Phone Care Team Providers Care Er Tech Name Role Phone Unavailable Primary Care Provider [...]
--- OUTSIDE RECORDS SUMMARY | 2025-07-13 18:58 | XMS_ITS | Encounter Summary ---
Author Organization [facility] Address 399 [facility] [address] [place] [address] Phone Care Team Providers Care Gas Appliance Servicer Helper Name Role Phone Amna Davis NP Primary Care Provider [phone] Koko Landon MD Primary Care Provider Koko Landon MD Primary Care Provider Koko Landon MD Unavailable David Joaquin MD Unavailable JUSTIN [email or web address] Encounter Details Date Type Department Care Team (Late st Contact Info) Description 06/30/2018 Procedure Pass [facility] Imaging [address] [place] [address] Social History Tobacco Use Types Packs/Day Years [...] on filedocumented in this encounter Care Teams Gas Appliance Servicer Helper Relationship Specialty Start Date End Date Amna Davis NP [address] [place] [address] [place] [address] PCP - General Family Medicine 03/25/18 06/19/19 Koko Landon MD [address] [place] [address] [place] [address] PCP - General 06/20/19 08/17/21 Koko Landon MD [address] [place] [address] [place] [address] PCP - General 08/18/21 Koko Landon MD [address] [place] [address] [place] [address] 08/18/21 David Joaquin MD [email or web address] Primary Oncologist Neurology 11/08/18 documented as of this encounter Additional Source Comments The information contained in this document represents components of the legal health record. It is not the complete legal health record.[facility]
--- OUTSIDE RECORDS SUMMARY | 2025-07-13 18:58 | XMS_ITS | Encounter Summary ---
Author Organization [facility] Address [address] [place] [address] Phone Care Team Providers Care Account Receivable Associate Name Role Phone Francesca [place]is MD Primary Care Provider Encounter Details Date Type Department Care Team (Late st Contact Info) Description 10/01/2011 Documentation [facility] Family Medicine [address] [place] [address] Family Medicine, Physician [address] [phone] Social History Tobacco Use Types Packs/Day Years [...] filedocumented in this encounter Care Teams Account Receivable Associate Relationship Specialty Start Date End Date Francesca Solis MD [address] [place] [address] BELEN Richardson PCP - General 04/09/17 12/06/22 documented as of this encounter
== END 2025-07-13 13:35 | disposition home or self-care (01) ==
LOC: HO.HMCFM 12:56
PROVIDERS: PCP Family Medicine; Visit Provider Family Medicine
DX: Z00.00 Encounter for general adult medical examination without abnormal findings (principal); Q85.01 Neurofibromatosis, type 1; E78.00 Pure hypercholesterolemia, unspecified

== ENCOUNTER → 2025-07-13 12:56 | Outpatient (BNVA) | payer OTHER, SELFPAY | PROVIDERS: PCP Family Medicine; Visit Provider Family Medicine | DX: Z00.00 Encounter for general adult medical examination without abnormal findings (principal); E78.00 Pure hypercholesterolemia, unspecified; Q85.01 Neurofibromatosis, type 1 | CPT/HCPCS: 96127 ==